=== PATIENT | female | born 1930 | race Caucasian/White ===

== ENCOUNTER 2016-08-03 08:30 | Inpatient (IN) | payer OTHER, BC ==
[2016-08-03] MEDS ORDERED: PANTOPRAZOLE SODIUM 40 MG in SODIUM CHLORIDE 100 ML IVPB ONE (09:22)
[2016-08-03] MEDS ORDERED: morphine CARPU-JECT 4 MG/1 ML DISP.SYRIN IVPUSH ONE ×2 (09:22→12:52)
[2016-08-03] MEDS ORDERED: ONDANSETRON 4 MG/2 ML VIAL IVPB ONE (09:22)
[2016-08-03] MEDS ORDERED: morphine CARPU-JECT 4 MG/1 ML DISP.SYRIN ONE ×2 (09:38→13:38)
[2016-08-03] MEDS ORDERED: ONDANSETRON 4 MG/2 ML VIAL ONE (09:39)
[2016-08-03] MEDS ORDERED: PANTOPRAZOLE SODIUM 40 MG VIAL ONE (09:39)
--- NOTE | 2016-08-03 09:39 | PDOC ---
History of Present Illness - General Chief Complaint: Pain Stated Complaint: ABD PAIN Time Seen by Provider: 08/03/16 08:56 History Source: Patient, Family Exam Limitations: No Limitations - History of Present Illness Travel History: No Initial Comments: 08/03/16 09:32 HPI: This 85 year old female presents with her daughter with c/o epigastric pain and vomiting since last evening. She was well until this began last evening. She states she had chills and sweating but no measurement of temp was taken. She recently was seen by her PMD (4 days ago) for cold symptoms and was started on Bactrium for treatment. She has been taking it for 4 days now. She has never had a problem taking this antibiotic before she states. Last meal is a freezer type meal that is vegetarian Chief Compliant:epigastri pain and vomiting. Pain location:epigastric pain Duration:since yesterday at 4 pm Modifying factors:takes morphine 5 mg for pain for back issues but did not resolve her abd pain Quality:10/10 Radiating:through out her abd Severity:sharp, cramp like, burning Time: constant PMH: CHF, duodenal ulcers, leukemia, hypothyroidism, RA, Sjogren Syndrome, OA, vertebral compression fractures, RLE venous insufficiency, cholelithasis, splenomegaly, daily steriod use and on protonix daily FH: Pt has not recently traveled outside the country in the last 30 days. Pt has not been in contact with people who have traveled out of the country, in contact with people who have been ill with fever, n, v, d. SH: smoking use: former illicit drug use: NONE alcohol use: NONE PSH: back surgery X 11, Right THR, Home med use noted on SEP Allergies: PCN Immunizations: PCP: Dr. Gupta 08/03/16 09:40 08/03/16 09:41 Past History - Past Medical History Allergies/Adverse Reactions: Allergies Allergy/AdvReac Type Severity Reaction Status Date / Time Penicillins Allergy Severe Swelling Verified 08/03/16 08:38 Home Medications: Ambulatory Orders Aspirin [Aspirin EC] 81 mg PO DAILY 03/30/15 Calcium Carb/Magnesium Ox,Carb [Gio-Mag Tablet Chewable] 1 tab PO DAILY Cholecalciferol (Vitamin D3) [Vitamin D3 -] 5,000 unit PO DAILY 03/30/15 Furosemide [Lasix -] 20 mg PO PRN PRN 03/30/15 Potassium Chloride [Klor-Con 10] 10 meq PO DAILY 03/30/15 Sulfamethoxazole/Trimethoprim [Bactrim DS -] 1 each PO DAILY tablet 04/02/15 Pantoprazole Sodium [Protonix] 40 mg PO DAILY 05/03/15 Levothyroxine [Synthroid -] 88 mcg PO DAILY@0700 11/20/15 Prednisone [Deltasone -] 9 mg PO PRN PRN 11/20/15 Morphine *Sr* [Ms Contin -] 5 mg PO Q8H 08/03/16 Anemia: No Asthma: No Cancer: No Cardiac Disorders: No CVA: No COPD: No CHF: Yes Dementia: No Diabetes: No GI Disorders: Yes (ULCER) Disorders: Yes (FREQUENCY) HTN: No Hypercholesterolemia: No Liver Disease: Yes (hepatitis ? TYPE) Seizures: No Thyroid Disease: Yes (hypo) - Surgical History Abdominal Surgery: No Appendectomy: No Cardiac Surgery: No Cholecystectomy: No Lung Surgery: No Neurologic Surgery: No Orthopedic Surgery: Yes (R THR, ORIF femur fx RIGHT) - Psycho/Social/Smoking Cessation Hx Anxiety: No Suicidal Ideation: No Smoking Status: No Smoking History: Former smoker Have you smoked in the past 12 months: No Number of Cigarettes Smoked Daily: 0 If you are a former smoker, when did you quit?: 20 years ago Information on smoking cessation initiated: No Hx Alcohol Use: No Drug/Substance Use Hx: No Substance Use Type: None Hx Substance Use Treatment: No Review of Systems - Review of Systems Able to Perform ROS?: Yes Comments:: 08/03/16 09:42 General statement: Abdominal pain Hematology: neg history of bleeding/blood thinners Skin: Neg for lesions, rash, bruising. HEENT: Neg symptoms Respiratory: Neg SOB or difficulty in breathing Cardiac: Neg chest pain GI: Epigastric positive pain, with n/v : Neg problems on voiding MS: Neg for joint pain/stiffness, no edema Neuro: Neg for LOC, weakness, Endocrine: Neg for excess thirst/hunger, cold/heat intolerance, excess sweating Allergies: Positive for allergies 08/03/16 11:28 *Physical Exam - Vital Signs Last Vital Signs Temp Pulse Resp BP Pulse Ox 67 18 152/83 95 08/03/16 08:36 08/03/16 08:36 08/03/16 08:36 08/03/16 08:36 - Physical Exam Comments: 08/03/16 11:28 General Appearance: This 85-year-old female V/S: hemodynamically stable, afebrile Skin: WNL of pt's skin color, no signs of pallor, mottling, cyanosis Head:symmetrical Eyes: EOM's intact, PERRLA Ears: denies pain Nose: patent Throat: lips, teeth, gums, tongue, buccal mucos pink and moist Lungs: Chest symmetry equal. Cap refill <3 seconds. Lung sounds clear but diminished Cardiac: PMI at R 4MCL space, pos S1 and S2, regular rate. Abdomen: Soft, round, positive tender at the epigastric. Positive bowel sounds. Last bowel movement yesterday : Not observed Muscularskeletal: Gait steady, ambulated in to ER, no edema +PMS Neuro: AAOx3, cognitively intact, speech clear and appropriate. ED Treatment Course - LABORATORY CBC & Chemistry Diagram: 08/03/16 09:40 08/03/16 09:40 - RADIOLOGY Radiology Studies Ordered: Category Date Time Status CHEST X-RAY PORTABLE* [RAD] Stat Radiology 08/03/16 09:20 Ordered Medical Decision Making - Medical Decision Making 08/03/16 11:26 Patient initially came in with complaints of abdominal pain that was a 10 out of 10 to the epigastric region since 4 PM yesterday. Patient has past medical history of epigastric pain, ulcers, and gastritis. Last admission was in March for similar complaints. No findings of GI B or gallstones. Patient appears uncomfortable with a 10 out of 10 pain. A/P abd pain with nausea and vomiting 1. Labs 2. IVF with added zofran and protonix and pain medications 3. abd/pelvic with contrast IV only CT. Pt refused to take po contrast 4. ekg 5. CXR 6. Probable admission for abd assessments Laboratory Tests 08/03/16 08/03/16 09:40 09:40 WBC 8.9 Hgb 10.1 L Hct 33.4 Plt Count 139 D Sodium 138 Potassium 4.0 Chloride 102 Carbon Dioxide 25 Anion Gap 11 BUN 11 D Creatinine 0.6 Random Glucose 145 H D Calcium 7.7 L Total Bilirubin 0.5 Lipase 87 08/03/16 11:29 While patient was at CAT scan she felt a pain in her mid back and heard a crack. She does have a history of compression fractures and osteoarthritis. Thoracic, lumbar, sacral x-rays have been ordered. Pain medication has been ordered. 08/03/16 12:49 Patient's CAT scan reveals a markedly splenomegaly marked gastric dilatation with air and fluid distending the stomach with findings of a distal small bowel obstruction suspected zone of transition in the middle lower pelvis between dilated and nondilated small bowel loops. No significant ascites or mesenteric infiltrate 08/03/16 13:[address] Coles for admission med surg for pt. 08/03/16 13:41 Noted old compression fractures with no acute findings. *DC/Admit/Observation/Transfer Diagnosis at time of Disposition: Small bowel obstruction Abdominal pain Qualifiers: Abdominal location: epigastric Qualified Code(s): R10.13 - Epigastric pain - Discharge Dispostion Condition at time of disposition: Guarded Admit: Yes
[2016-08-03] MEDS: SODIUM CHLORIDE 1,000 ML IV SCH (09:47)
[2016-08-03 09:59] LABS: MCHC 30.4 g/dl (32.0-36.0); MEAN CELL VOLUME 57.4 fl (80-96); MEAN PLT VOLUME 8.2 fl (7.5-11.1); PLATELET COUNT 139 K/MM3 (134-434); RDW 18.7 % (11.6-15.6); WHITE BLOOD COUNT 8.9 K/mm3 (4.0-10.0)
[2016-08-03 10:12] LABS: MCH 17.4 pg (25.7-33.7)
[2016-08-03 10:14] LABS: ALBUMIN 3.3 g/dl (3.4-5.0); ANION GAP 11 (8-16); BILIRUBIN,TOTAL 0.5 mg/dL (0.2-1.0); CALCIUM 7.7 mg/dL (8.5-10.1); CO2 25 mmol/L (21-32); CREATININE 0.6 mg/dL (0.55-1.02); GLUCOSE,RANDOM 145 mg/dL (74-106); SGOT/AST 16 U/L (15-37); SGPT/ALT 10 U/L (12-78); TOT PROT 7.7 g/dl (6.4-8.2)
[2016-08-03 10:16] LABS: ALK PHOS 55 U/L (45-117); TROPONIN I < 0.02 ng/ml (0.00-0.05)
[2016-08-03 11:22] LABS: ANISOCYTOSIS 2+; FRAGMENTED CELL 1+; HYPOCHROMIA 2+; MICROCYTOSIS 3+; OVALOCYTES 2+; POIKILOCYTOSIS 2+; TEAR DROP CELLS 1+
--- NOTE | 2016-08-03 11:32 | EKG ---
Test Reason : Blood Pressure : / mmHG Vent. Rate : 055 BPM Atrial Rate : 055 BPM P-R Int : 216 ms QRS Dur : 112 ms QT Int : 470 ms P-R-T Axes : 046 -20 -03 degrees QTc Int : 449 ms SINUS BRADYCARDIA WITH MARKED SINUS ARRHYTHMIA WITH 1ST DEGREE A-V BLOCK WHEN COMPARED WITH ECG OF 20-NOV-2015 20:08, NO SIGNIFICANT CHANGE WAS FOUND Confirmed by CHANDLER URIAS MD ([id number]) on 08/03/2016 11:32:20 AM Referred By: Confirmed By:CHANDLER URIAS MD
[2016-08-03 13:15] LABS: URINE APPEARANCE CLEAR; URINE BILIRUBIN NEGATIVE (NEGATIVE); URINE BLOOD NEGATIVE (NEGATIVE); URINE COLOR LTYELLOW; URINE GLUCOSE (UA) NEGATIVE (NEGATIVE); URINE KETONE NEGATIVE (NEGATIVE); URINE LEUK ESTERASE NEGATIVE (NEGATIVE); URINE NITRITE NEGATIVE (NEGATIVE); URINE PROTEIN NEGATIVE (NEGATIVE); URINE UROBILINOGEN NEGATIVE E.U./dl (0.2-1.0)
[2016-08-03] MEDS ORDERED: ONDANSETRON 4 MG/2 ML VIAL IVPB PRN (15:41)
--- NOTE | 2016-08-03 15:44 | HP ---
Admitting History and Physical - Primary Care Physician PCP: Trent Gupta - Admission Chief Complaint: I'm having pain History of Present Illness: Ms Olson is an 85 year old female who comes in with abdominal pain. She says it began last night. It is sharp and crampy in nature. It is constant. She feels it throughout her abdomen. It started off light and has steadily progressed. She has nausea and dry heaves with it. Her last bowel movement was this morning. She is still having abdominal pain. She denies fevers, chills, lightheadedness, dizziness, chest pain, shortness of breath, difficulty or pain on urination, or swelling. History Source: Patient Limitations to Obtaining History: No Limitations - Past Medical History SERVICE CASHIER: Yes: TIA (Possible 03/2013). 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), Thrombocytopenia, Other (Splenomegaly) Musculoskeletal: Yes: Osteoarthritis, Other (Osteoporosis Compression fractures and kyphoplasty) Rheumatology: Yes: Other (Possible inflamatory arthritis RA or Sjogren's syndrome) Endocrine: Yes: Hypothyroidism - Past Surgical History Past Surgical History: Yes: Joint Replacement (Right Hip Kyphoplasty) - Smoking History Smoking history: Former smoker Have you smoked in the past 12 months: No Aproximately how many cigarettes per day: 0 If you are a former smoker, when did you quit?: 20 years ago - Alcohol/Substance Use Hx Alcohol Use: No History of Substance Use: reports: None - Social History ADL: Independent Occupation: Retired educator History of Recent Travel: No Home Medications - Allergies Allergies/Adverse Reactions: Allergies Allergy/AdvReac Type Severity Reaction Status Date / Time Penicillins Allergy Severe Swelling Verified 08/03/16 08:38 - Home Medications Home Medications: Ambulatory Orders Aspirin [Aspirin EC] 81 mg PO DAILY 03/30/15 Calcium Carb/Magnesium Ox,Carb [Gio-Mag Tablet Chewable] 1 tab PO DAILY Cholecalciferol (Vitamin D3) [Vitamin D3 -] 5,000 unit PO DAILY 03/30/15 Furosemide [Lasix -] 20 mg PO PRN PRN 03/30/15 Potassium Chloride [Klor-Con 10] 10 meq PO DAILY 03/30/15 Sulfamethoxazole/Trimethoprim [Bactrim DS -] 1 each PO DAILY tablet 04/02/15 Pantoprazole Sodium [Protonix] 40 mg PO DAILY 05/03/15 Levothyroxine [Synthroid -] 88 mcg PO DAILY@0700 11/20/15 Prednisone [Deltasone -] 9 mg PO PRN PRN 11/20/15 Morphine *Sr* [Ms Contin -] 5 mg PO Q8H 08/03/16 Family Disease History - Family Disease History Family Disease History: Other: Brother (rheumatoid arthritis), Sister ( osteoarthritis) Review of Systems Findings/Remarks: Full review of systems obtained, as per HPI and otherwise negative Physical Examination Vital Signs: Vital Signs Temperature 97.8 F 08/03/16 12:00 Pulse Rate 60 08/03/16 12:00 Respiratory Rate 20 08/03/16 12:00 Blood Pressure 114/68 08/03/16 12:00 O2 Sat by Pulse Oximetry (%) 97 08/03/16 12:00 Constitutional: Yes: Mild Distress Eyes: Yes: Conjunctiva Clear, EOM Intact HENT: Yes: Atraumatic, Normocephalic Cardiovascular: Yes: Regular Rate and Rhythm, Murmur. No: Gallop, Rub Respiratory: Yes: Regular, CTA Bilaterally. No: Rales, Rhonchi, Wheezes Gastrointestinal: Yes: Distention, Hypoactive Bowel Sounds, Tenderness. No: Tenderness, Rebound Extremities: Yes: WNL Edema: No Labs: Laboratory Results - last 24 hr 08/03/16 08/03/16 08/03/16 09:40 09:40 09:52 WBC 8.9 RBC 5.81 H D Hgb 10.1 L Hct 33.4 MCV 57.4 L MCHC 30.4 L RDW 18.7 H Plt Count 139 D MPV 8.2 D Neutrophils % 59.0 Lymphocytes % 23.0 D Monocytes % 17.0 H Basophils % 1.0 Differential Comment Manual diff done Hypochromic-Microcytic 2+ Poikilocytosis 2+ Anisocytosis 2+ Microcytosis 3+ Tear Drop Cells 1+ Ovalocytes 2+ Fragmented RBCs 1+ Morphology Comment Slide scanned Sodium 138 Potassium 4.0 Chloride 102 Carbon Dioxide 25 Anion Gap 11 BUN 11 D Creatinine 0.6 Creat Clearance w eGFR > 60 Random Glucose 145 H D Calcium 7.7 L Total Bilirubin 0.5 AST 16 D ALT 10 L D Alkaline Phosphatase 55 Creatine Kinase 24 L Troponin I < 0.02 Total Protein 7.7 Albumin 3.3 L Lipase 87 Urine Color Ltyellow Urine Appearance Clear Urine pH 8.0 D Ur Specific [place] 1.041 H Urine Protein Negative Urine Glucose (UA) Negative Urine Ketones Negative Urine Blood Negative Urine Nitrite Negative Urine Bilirubin Negative Urine Urobilinogen Negative Ur Leukocyte Esterase Negative Imaging - Results Chest X-ray: Report Reviewed, Image Reviewed Cat Scan: Report Reviewed Problem List - Problems (1) Small bowel obstruction Assessment/Plan: -patient with abdominal pain and dry heaves -CT scan shows SBO -admit to med/surg -npo -IV morphine for pain -GI and general surgery consult -NGT to [facility]WS Code(s): K56.69 - OTHER INTESTINAL OBSTRUCTION (2) Hypothyroid Assessment/Plan: -will hold synthroid currently -if remains npo for extended period of time, start IV synthroid Code(s): E03.9 - HYPOTHYROIDISM, UNSPECIFIED (3) Inflammatory arthritis Assessment/Plan: -currently on IV morphine -PT consult -restart home medications when taking po Code(s): M19.90 - UNSPECIFIED OSTEOARTHRITIS, UNSPECIFIED SITE (4) Systolic murmur Assessment/Plan: -present and chronic -monitor Code(s): I38 - ENDOCARDITIS, VALVE UNSPECIFIED (5) Myelodysplastic disease Code(s): C94.6 - MYELODYSPLASTIC DISEASE, NOT CLASSIFIED (6) Sjogrens syndrome Code(s): M35.00 - SICCA SYNDROME, UNSPECIFIED
[2016-08-03 20:08] VITALS: BMI 22.6
[2016-08-03] MEDS ORDERED: HEPARIN NA (PORCINE) 5,000 UNITS/ML 1ML VIAL ONE (21:16)
[2016-08-03] MEDS: HEPARIN NA (PORCINE) 5,000 UNITS/ML 1ML VIAL SQ SCH (21:17)
[2016-08-04] MEDS: HEPARIN NA (PORCINE) 5,000 UNITS/ML 1ML VIAL SQ SCH ×3 (06:25→22:10)
[2016-08-04 07:50] LABS: MCHC 30.6 g/dl (32.0-36.0); MEAN CELL VOLUME 57.1 fl (80-96); MEAN PLT VOLUME 8.4 fl (7.5-11.1); PLATELET COUNT 133 K/MM3 (134-434); RDW 18.8 % (11.6-15.6)
[2016-08-04 07:55] LABS: MCH 17.5 pg (25.7-33.7)
--- NOTE | 2016-08-04 08:15 | PN ---
Progress Note (short form) - Note Progress Note: Patient seen and examined Chart reviewed. 85 year old with complicated PMHx, presented with abdominal pain and CT findings c/w distal SBO. Attempts at NGT passage were unsuccessful. Currently supine in bed awake alert and responsive and complaining mostly of back pain c/w h/o multiple compression fractures. Denies new chest discomfort, palpitations jenkins or angina. Labs and radiologic studies reviewed. Await surgical opinion. Selected Entries 08/03/16 08/04/16 23:45 06:00 Temperature 98 F Pulse Rate 70 Respiratory 18 Rate Blood Pressure 113/73 Weight 104 lb Weight Built in Measurement Bedscale Method Laboratory Tests 08/03/16 08/04/16 09:40 06:15 WBC 9.0 Hgb 9.4 L Hct 30.9 L Plt Count 133 L Sodium 138 Potassium 4.0 Chloride 102 Carbon Dioxide 25 BUN 11 D Creatinine 0.6 Random Glucose 145 H D Calcium 7.7 L Total Bilirubin 0.5 AST 16 D ALT 10 L D Alkaline Phosphatase 55 Creatine Kinase 24 L Troponin I < 0.02 Total Protein 7.7 Albumin 3.3 L Lipase 87 Chest Clear with decreased breath sounds at bases No wheezing Cor RRR 2/6 systolic murmur Abdomen Soft non-tender No BS audible Spleen palpable LUQ Ext No new edema Neuro No new focal deficit Assessment and Plan SBO Refused NGT Await surgical opinion NGT passed this AM by me, but patient was uncomfortable No initial drainage noted. 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 Has seen Dr Gutierrez Stable at present Inflammatory arthritis Possible RA and Sjogren's syndrome Chronic hypergammaglobulinemia Hypothyroid Follow closely Cholelithiasis Noted on Ultrasound ordered by Dr Pierce 03/2016 AAA 3.4 cm with bilateral iliac artery aneurysms Osteoporosis with multiple spinal compression fractures of the thoracic and lumbar spine post kyphoplasties Has new back pain Will ask Dr Baxter to see her again 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 on daily antibiotic suppression post drainage of right thigh mass On chronic steroids Replace low dose steroids Observe for signs/symptoms of Addisonian crisis H/O acid peptic disease/duidenal ulcer Full extensive Problem List as per office notes and old charts
[2016-08-04] MEDS: morphine CARPU-JECT 2 MG/1 ML DISP.SYRIN IVPUSH PRN ×3 (08:37→18:42)
[2016-08-04 08:45] LABS: ALBUMIN 2.8 g/dl (3.4-5.0); ALK PHOS 53 U/L (45-117); ANION GAP 12 (8-16); BILIRUBIN,TOTAL 0.4 mg/dL (0.2-1.0); CALCIUM 7.4 mg/dL (8.5-10.1); CO2 22 mmol/L (21-32); CREATININE 0.5 mg/dL (0.55-1.02); GLUCOSE,RANDOM 88 mg/dL (74-106); MAGNESIUM 2.3 mg/dL (1.8-2.4); PHOSPHOROUS 2.4 mg/dL (2.5-4.9); SGOT/AST 13 U/L (15-37); SGPT/ALT 7 U/L (12-78); TOT PROT 6.8 g/dl (6.4-8.2)
[2016-08-04] MEDS: SODIUM CHLORIDE 1,000 ML IV SCH ×2 (10:00→22:10)
--- NOTE | 2016-08-04 10:03 | CONSULT ---
Consultation: REQUESTING PROVIDER: TRACEY VILLARREAL CONSULT REQUEST: I have been asked to surgically evaluate this patient for evaluation and management of abdominal pain. HISTORY OF PRESENT ILLNESS: This 85 y/o White female was admitted w/ abdominal pain w/ nausea and w/o vomiting; she states today she is passing flatus; attempts were made for NGT decompression based on the CT scan findings which were unsuccessful. She is c/o back pain; she takes narcotics for her back pain. She has had no abdominal surgery. Colonoscopy ?. She states she has had this 2 or 3 times in the past ? and it resolved w/ conservative tx. PMHx is reviewed PHYSICAL EXAMINATION Vital Signs Temperature 98 F 08/04/16 06:00 Pulse Rate 70 08/04/16 06:00 Respiratory Rate 18 08/04/16 06:00 Blood Pressure 113/73 08/04/16 06:00 O2 Sat by Pulse Oximetry (%) 97 08/03/16 12:00 GENERAL: Awake, alert, and fully oriented, in no acute distress. HEAD: Normal with no signs of trauma. ABDOMEN: Soft, nontender, not distended but tympanitic, normoactive bowel sounds , no guarding, no rebound, no masses. UPPER EXTREMITIES: 2+ pulses, warm, well-perfused. No cyanosis. Cap refill <2 seconds. No peripheral edema. LOWER EXTREMITIES: 2+ pulses, warm, well-perfused. No calf tenderness. No peripheral edema. NEUROLOGICAL: Normal speech, gait not observed. PSYCH: Cooperative. Good eye contact. Appropriate mood and affect. SKIN: Warm, dry, normal turgor, no rashes or lesions noted. LABS: Laboratory Results - last 24 hr 08/04/16 08/04/16 06:15 06:15 WBC 9.0 RBC 5.40 H Hgb 9.4 L Hct 30.9 L MCV 57.1 L MCHC 30.6 L RDW 18.8 H Plt Count 133 L MPV 8.4 Neutrophils % Y Lymphocytes % Y Sodium 140 Potassium 3.9 Chloride 106 Carbon Dioxide 22 Anion Gap 12 BUN 7 D Creatinine 0.5 L Creat Clearance w eGFR > 60 Random Glucose 88 D Calcium 7.4 L Phosphorus 2.4 L D Magnesium 2.3 Total Bilirubin 0.4 AST 13 L ALT 7 L D Alkaline Phosphatase 53 Total Protein 6.[address] scan a/p reviewed; previous studies reviewed IMP: ? SBO ? PLAN: Suggest NPO/IVF/suggest obstructive series today (flat and upright abdominal x-rays); will f/u; no evidence of an acute surgical abdomen at this time. Praveen Ross MD FACS Visit type - Case Type Case Type: ED Admission - Emergency Emergency Visit: Yes ED Registration Date: 08/03/16 Care time: The patient presented to the Emergency Department on the above date and was hospitalized for further evaluation of their emergent condition. - New patient This patient is new to me today: Yes Date on this admission: 08/04/16 - Critical Care Critical Care patient: No
[2016-08-04] MEDS: PANTOPRAZOLE SODIUM 100 ML IVPB SCH (10:09)
[2016-08-04 10:53] LABS: PLATELET COMMENT2 NO CLOTTING DETECTED; PLATELET ESTIMATE SLT DECREASED (NORMAL); SMUDGE CELLS FEW
[2016-08-04 10:54] LABS: ANISOCYTOSIS 3+; FRAGMENTED CELL 1+; HYPOCHROMIA 2+; MICROCYTOSIS 3+; OVALOCYTES 1+; POIKILOCYTOSIS 2+; POLYCHROMASIA 2+; SPHEROCYTE 1+
--- NOTE | 2016-08-04 11:46 | PN ---
Progress Note, Physician Chief Complaint: mid back pain History of Present Illness: 85 year old female who comes in with abdominal pain. and mid back pain. Pain score 8/10 without medications She reports difficulty working due to pain. She states she has no weakness or numbness but the pain worsens with coughing. - Current Medication List Current Medications: Active Medications Heparin Sodium (Porcine) (Heparin -) 5,000 unit SQ TID [facility] Last Admin: 08/04/16 06:25 Dose: 5,000 unit Sodium Chloride (Normal Saline -) 1,000 mls @ 75 mls/hr IV ASDIR [facility] Last Admin: 08/04/16 10:00 Dose: Not Given Pantoprazole Sodium (Protonix 40mg Ivpb (Pre-Docked)) 100 mls @ 200 mls/hr IVPB DAILY [facility] Last Admin: 08/04/16 10:09 Dose: 200 mls/hr Morphine Sulfate (Morphine Injection -) 1 mg IVPUSH Q4H PRN PRN Reason: PAIN Last Admin: 08/04/16 08:37 Dose: 1 mg Ondansetron HCl (Zofran Injection) 4 mg IVPB Q6H PRN PRN Reason: NAUSEA - Objective Vital Signs: Vital Signs Temperature 98 F 08/04/16 06:00 Pulse Rate 70 08/04/16 06:00 Respiratory Rate 18 08/04/16 06:00 Blood Pressure 113/73 08/04/16 06:00 O2 Sat by Pulse Oximetry (%) 97 08/03/16 12:00 Constitutional: Yes: Anxious Musculoskeletal: Yes: Back Pain Labs: CBC, BMP 08/04/16 06:15 08/04/16 06:15 Assessment/Plan Mid back pain Abdominal pain secondary to obstruction 1. I would recommend a nuclear bone scan to rule out any acute compression fracture if her mid back pain continues to be severe. 2. Continue morphine PRN pain for now 3. GI work up for obstruction
--- NOTE | 2016-08-04 11:47 | CON.GI ---
Consult Consult Specialty:: GASTROENTEROLOGY (FOR TOM) Reason for Consultation:: SBO - History of Present Illness Chief Complaint: ABDOMINAL PAIN History of Present Illness: 85 YEAR OLD FEMALE WITH HISTORY OF LUMBAR COMPRESSION FRACTURES ( STATES TAKES NARCOTICS ) ADMITTED WITH NAUSEA BUT NO VOMITING AND WAS ADMITTED WITH CT SCAN SUGGESTING SBO. PATIENT MAIN C/O TODAY IS BACK PAIN. NO N/V BUT NO BM. SHE IS PASSING SOME FLATUS. SHE ALSO HAS CHRONIC SPLENOMEGALY AND MICROCYTIC ANEMIA. UPPER GI SERIES DONE BY DR SANTOS WAS NEGATIVE AND ULTRASOUND REVEALED SPLENOMEGALY AND GALLSTONES. SHE HAS NEVER HAD A COLONOSCOPY AND IS REFUSING THIS CURRENTLY - History Source History Provided By: Patient Limitations to Obtaining History: No Limitations - Past Medical History PERSONAL BANKER: Yes: TIA (Possible 03/2013). 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 No: AFIB, CHF Gastrointestinal: Yes: Peptic Ulcer Disease (duodenitis/gastritis/duodenal ulcer ), Other (Schatzki ring) Hepatobiliary: Yes: Other (GALLSTONES) ...: No Musculoskeletal: Yes: Osteoarthritis, Other (Osteoporosis Compression fractures and kyphoplasty) Rheumatology: Yes: Other (Possible inflamatory arthritis RA or Sjogren's syndrome) Endocrine: Yes: Hypothyroidism - Past Surgical History Past Surgical History: Yes: Joint Replacement (Right Hip Kyphoplasty) - Alcohol/Substance Use Hx Alcohol Use: No History of Substance Use: reports: None - Smoking History Smoking history: Former smoker Have you smoked in the past 12 months: No Aproximately how many cigarettes per day: 0 If you are a former smoker, when did you quit?: 20 years ago - Social History ADL: Independent Occupation: Retired educator History of Recent Travel: No Home Medications - Allergies Allergies/Adverse Reactions: Allergies Allergy/AdvReac Type Severity Reaction Status Date / Time Penicillins Allergy Severe Swelling Verified 08/03/16 08:38 - Home Medications Home Medications: Ambulatory Orders Aspirin [Aspirin EC] 81 mg PO DAILY 03/30/15 Calcium Carb/Magnesium Ox,Carb [Gio-Mag Tablet Chewable] 1 tab PO DAILY Cholecalciferol (Vitamin D3) [Vitamin D3 -] 5,000 unit PO DAILY 03/30/15 Furosemide [Lasix -] 20 mg PO PRN PRN 03/30/15 Potassium Chloride [Klor-Con 10] 10 meq PO DAILY 03/30/15 Sulfamethoxazole/Trimethoprim [Bactrim DS -] 1 each PO DAILY tablet 04/02/15 Pantoprazole Sodium [Protonix] 40 mg PO DAILY 05/03/15 Levothyroxine [Synthroid -] 88 mcg PO DAILY@0700 11/20/15 Prednisone [Deltasone -] 9 mg PO PRN PRN 11/20/15 Morphine *Sr* [Ms Contin -] 5 mg PO Q8H 08/03/16 Family Disease History - Family Disease History Family Disease History: Other: Brother (rheumatoid arthritis), Sister ( osteoarthritis) Review of Systems - Review of Systems Constitutional: reports: Loss of Appetite Eyes: reports: No Symptoms HENT: reports: No Symptoms Neck: reports: No Symptoms Cardiovascular: reports: No Symptoms Respiratory: reports: Cough, SOB Gastrointestinal: reports: Abdominal Pain, Nausea, Other (NO BM) Genitourinary: reports: No Symptoms Musculoskeletal: reports: Back Pain Integumentary: reports: No Symptoms Physical Exam-GI Vital Signs: Vital Signs Temperature 98 F 08/04/16 06:00 Pulse Rate 70 08/04/16 06:00 Respiratory Rate 18 08/04/16 06:00 Blood Pressure 113/73 08/04/16 06:00 O2 Sat by Pulse Oximetry (%) 97 08/03/16 12:00 Constitutional: Yes: Mild Distress, Other (DUE TO BACK PAIN) Eyes: Yes: Conjunctiva Clear HENT: Yes: Normocephalic Cardiovascular: Yes: Regular Rate and Rhythm, Murmur Respiratory: Yes: Regular ...Auscultate: Yes: Hypoactive Bowel Sounds, Other (MILD TYPANY) ...Palpate: Yes: Splenomegaly Extremities: Yes: WNL Labs: CBC, BMP 08/04/16 06:15 08/04/16 06:15 Laboratory Tests 08/03/16 08/04/16 08/04/16 09:40 06:15 06:15 WBC 9.0 RBC 5.40 H Hgb 9.4 L Hct 30.9 L MCV 57.1 L MCHC 30.6 L RDW 18.8 H Plt Count 133 L Monocytes % 23.0 H Sodium 140 Potassium 3.9 Chloride 106 Carbon Dioxide 22 Anion Gap 12 BUN 7 D Creatinine 0.5 L Creat Clearance w eGFR > 60 Random Glucose 88 D Calcium 7.4 L Phosphorus 2.4 L D Magnesium 2.3 Total Bilirubin 0.4 AST 13 L ALT 7 L D Alkaline Phosphatase 53 Total Protein 6.8 Albumin 2.8 L Lipase 87 Imaging - Results X-ray: Pending Cat Scan: Image Reviewed Problem List - Problems (1) Small bowel obstruction Assessment/Plan: PROBABLE PARTIAL SBO, NGT PLACEMENT FAILED: SHE IS NOT VOMITING SO OK TO LEAVE OUT. OOB, AMBULATE, TURN IN BED, AWAIT FUA DO NOT ADVANCE DIET TODAY Code(s): K56.69 - OTHER INTESTINAL OBSTRUCTION (2) Abdominal pain Assessment/Plan: ABOVE Code(s): R10.9 - UNSPECIFIED ABDOMINAL PAIN Qualifiers: Abdominal location: epigastric Qualified Code(s): R10.13 - Epigastric pain (3) Intractable low back pain Code(s): M54.5 - LOW BACK PAIN (4) Hypothyroid Assessment/Plan: PER PMD Code(s): E03.9 - HYPOTHYROIDISM, UNSPECIFIED (5) Microcytic anemia Assessment/Plan: PREVIOUS WORK UP? Code(s): D50.9 - IRON DEFICIENCY ANEMIA, UNSPECIFIED
[2016-08-05] MEDS: morphine CARPU-JECT 2 MG/1 ML DISP.SYRIN IVPUSH PRN ×4 (02:24→17:30)
[2016-08-05] MEDS: HEPARIN NA (PORCINE) 5,000 UNITS/ML 1ML VIAL SQ SCH ×3 (06:26→22:20)
[2016-08-05] MEDS: SODIUM CHLORIDE 1,000 ML IV SCH ×3 (06:27→20:05)
[2016-08-05 07:54] LABS: MCHC 30.1 g/dl (32.0-36.0); MEAN CELL VOLUME 57.3 fl (80-96); MEAN PLT VOLUME 8.2 fl (7.5-11.1); PLATELET COUNT 129 K/MM3 (134-434); RDW 19.1 % (11.6-15.6)
[2016-08-05 07:57] LABS: MCH 17.2 pg (25.7-33.7)
--- NOTE | 2016-08-05 08:08 | PN ---
Progress Note (short form) - Note Progress Note: Pt states that she had a bowel movement yesterday and passed flatus. No nausea or emesis and hasn't had anything to eat or drink. She complaints of back pain/ right rib pain with deep breaths. Vital Signs Period Temp Pulse Resp BP Sys/Ramirez Pulse Ox Last 24 Hr 97.7 F-98.7 F 76-85 18-18 122-144/61-79 96-96 PE: GEN: A&0x3, NAD CV: RRR Lungs: CTA b/l ABD: soft, non-distended, non-tender CBC, BMP 08/05/16 07:15 Problem List - Problems (1) Small bowel obstruction Assessment/Plan: Resolving SBO, abd non-tender Will begin clears and may adv diet as tolerated, regular diet for dinner/lunch if she continue to not have abd with eating. Recommend stool softners after she is tolerating a regular diet, she takes MS contin for chronic back pain D/w Dr. Ross Code(s): K56.69 - OTHER INTESTINAL OBSTRUCTION
[2016-08-05 08:35] LABS: ALBUMIN 2.6 g/dl (3.4-5.0); ANION GAP 12 (8-16); CO2 22 mmol/L (21-32); GLUCOSE,RANDOM 65 mg/dL (74-106); MAGNESIUM 2.3 mg/dL (1.8-2.4)
[2016-08-05 08:39] LABS: ALK PHOS 47 U/L (45-117); BILIRUBIN,TOTAL 0.5 mg/dL (0.2-1.0); CREATININE 0.5 mg/dL (0.55-1.02); SGOT/AST 11 U/L (15-37); SGPT/ALT < 6 U/L (12-78); TOT PROT 6.3 g/dl (6.4-8.2)
--- NOTE | 2016-08-05 09:21 | PN ---
Progress Note (short form) - Note Progress Note: Patient seen and examined Chart reviewed. 85 year old with complicated PMHx, presented with abdominal pain and CT findings c/w distal SBO. Attempts at NGT passage were unsuccessful. Currently supine in bed awake alert and responsive and complaining mostly of back pain c/w h/o multiple compression fractures. Pain exacerbated by coughing. Denies new chest discomfort ither than right sided rib area pain, palpitations jenkins or angina. Labs and radiologic studies reviewed. Surgical and GI notes appreciated. will advance diet Dr Baxter's note appreciated. Labs reviewed Selected Entries 08/04/16 08/05/16 21:00 05:56 Temperature 97.7 F Pulse Rate 79 Respiratory 18 Rate Blood Pressure 144/79 O2 Sat by Pulse 96 Oximetry (%) Oxygen Delivery Room Air Method Weight 104 lb 1.6 oz Weight Built in Measurement Bedscale Method Laboratory Tests 08/05/16 08/05/16 07:15 07:15 WBC 9.0 Hgb 9.3 L Hct 30.7 L Plt Count 129 L Neutrophils % 60.0 Lymphocytes % 13.0 D Monocytes % 26.0 H Sodium 143 Potassium 3.4 L Chloride 109 H Carbon Dioxide 22 BUN 9 D Creatinine 0.5 L Random Glucose 65 L D Calcium 7.0 L Magnesium 2.3 Total Bilirubin 0.5 D AST 11 L ALT < 6 L Alkaline Phosphatase 47 Total Protein 6.3 L Albumin 2.6 L Chest Scattered rhonchi and fine end-expiratory wheezing with decreased breath sounds at bases Cor RRR 2/6 systolic murmur Abdomen Soft non-tender Bowel sounds audible this AM Spleen palpable LUQ Ext No new edema Neuro No new focal deficit Assessment and Plan SBO Surgical and GI opinion noted Passing flatus Bowel sounds audible this AM Begin clear liquids 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 on daily antibiotic suppression post drainage of right thigh mass Renew daily oral antibiotic On chronic steroids Replace low dose steroids Observe for signs/symptoms of Addisonian crisis Will add iv solumedrol for pulmonary congestion and cough Will taper quickly H/O acid peptic disease/duidenal ulcer Continue PPI Cough/congestion Cough is making her back pain worse Will add albuterol nebulizer and corticosteroids Hypoalbuminemia Effects iof chronic disease as well as nutritional factors Hypokalemia 3.4 Replete Check Mg HYpocalcemia 7.0 corrected to 8.12 Recheck Full extensive Problem List as per office notes and old charts
[2016-08-05] MEDS: DOCUSATE SODIUM 100 MG CAPSULE (FP) PO SCH (10:19)
[2016-08-05] MEDS: PANTOPRAZOLE SODIUM 100 ML IVPB SCH (10:20)
[2016-08-05] MEDS: POTASSIUM CHLORIDE TABS 20 MEQ TABLET.ER (FP) PO SCH (10:20)
[2016-08-05] MEDS: methylPREDNISolone NA SUCC 40 MG/1 ML VIAL IVPB SCH ×2 (10:20→17:31)
[2016-08-05 13:44] LABS: THYROID STIMULATING HORMONE 1.95 uIU/ml (0.358-3.74)
--- NOTE | 2016-08-05 14:48 | PN ---
GI Progress Note Subjective: GASTROENTEROLOGY HAD BM YESTERDAY AND THIS AM, STARTED ON LIQUIDS, MAIN COMPLAINTS AGAIN IS BACK PAIN - Objective Vital Signs: Vital Signs Temperature 98.2 F 08/05/16 14:38 Pulse Rate 90 08/05/16 14:38 Respiratory Rate 18 08/05/16 14:38 Blood Pressure 142/72 08/05/16 14:38 O2 Sat by Pulse Oximetry (%) 96 08/05/16 09:00 Constitutional: No Distress Eyes: Yes: Conjunctiva Clear HENT: Yes: Normocephalic Neck: Yes: Supple Cardiovascular: Yes: Regular Rate and Rhythm Respiratory: Yes: Regular Gastrointestinal Inspection: Yes: Distention ...Auscultate: Yes: Normoactive Bowel Sounds ...Palpate: Yes: Soft Extremities: Yes: WNL Labs: CBC, BMP 08/05/16 07:15 08/05/16 07:15 Laboratory Tests 08/05/16 08/05/16 07:15 07:15 WBC 9.0 RBC 5.37 H Hgb 9.3 L Hct 30.7 L MCV 57.3 L MCHC 30.1 L RDW 19.1 H Plt Count 129 L Sodium 143 Potassium 3.4 L Chloride 109 H Carbon Dioxide 22 Anion Gap 12 BUN 9 D Creatinine 0.5 L Creat Clearance w eGFR > 60 Random Glucose 65 L D Calcium 7.0 L Magnesium 2.3 Total Protein 6.3 L Albumin 2.6 L TSH 1.95 D Problem List - Problems (1) Small bowel obstruction Assessment/Plan: SEEMS TO BE RESOLVING FURTHER THERAPY AND FOLLOW BY SURGICAL TEAM AGREE WITH SURGICAL TEAM PLAN Code(s): K56.69 - OTHER INTESTINAL OBSTRUCTION (2) Abdominal pain Code(s): R10.9 - UNSPECIFIED ABDOMINAL PAIN Qualifiers: Abdominal location: epigastric Qualified Code(s): R10.13 - Epigastric pain (3) Intractable low back pain Code(s): M54.5 - LOW BACK PAIN (4) Hypothyroid Code(s): E03.9 - HYPOTHYROIDISM, UNSPECIFIED (5) Microcytic anemia Code(s): D50.9 - IRON DEFICIENCY ANEMIA, UNSPECIFIED
[2016-08-05] MEDS: ALBUTEROL SO4 0.083% IH SOL 2.5 MG/3 ML VIAL.NEB. NEB PRN (21:55)
[2016-08-06] MEDS: morphine CARPU-JECT 2 MG/1 ML DISP.SYRIN IVPUSH PRN ×5 (00:14→19:08)
[2016-08-06] MEDS: methylPREDNISolone NA SUCC 40 MG/1 ML VIAL IVPB SCH ×3 (01:31→21:13)
[2016-08-06] MEDS: HEPARIN NA (PORCINE) 5,000 UNITS/ML 1ML VIAL SQ SCH ×3 (06:14→21:12)
[2016-08-06 08:04] LABS: MCHC 30.8 g/dl (32.0-36.0); MEAN CELL VOLUME 57.2 fl (80-96); MEAN PLT VOLUME 8.2 fl (7.5-11.1); PLATELET COUNT 135 K/MM3 (134-434); WHITE BLOOD COUNT 6.6 K/mm3 (4.0-10.0)
[2016-08-06 08:10] LABS: MCH 17.6 pg (25.7-33.7)
[2016-08-06 08:46] LABS: ALBUMIN 2.6 g/dl (3.4-5.0); ALK PHOS 48 U/L (45-117); ANION GAP 9 (8-16); BILIRUBIN,TOTAL 0.4 mg/dL (0.2-1.0); CO2 23 mmol/L (21-32); CREATININE 0.5 mg/dL (0.55-1.02); GLUCOSE,RANDOM 132 mg/dL (74-106); MAGNESIUM 2.4 mg/dL (1.8-2.4); SGOT/AST 14 U/L (15-37); SGPT/ALT 7 U/L (12-78); TOT PROT 6.4 g/dl (6.4-8.2)
--- NOTE | 2016-08-06 08:53 | PN ---
[id number] old with complicated PMHx, presented with abdominal pain and CT findings c/w distal SBO. Attempts at NGT passage were unsuccessful. Currently sitting up in chair OOB, awake alert and responsive and complaining mostly of mid back pain c/w h/o multiple compression fractures. Tolerating clear liquid diet. Had BM according to nurses. Denies new chest discomfort other than right sided rib area pain, palpitations SANTOS or angina. Labs and radiologic studies reviewed. Surgical and GI notes appreciated. Dr Baxter's note appreciated. Await further suggestions. Labs reviewed Selected Entries 08/05/16 08/06/16 21:00 06:35 Temperature 98 F Pulse Rate 67 Respiratory 20 Rate Blood Pressure 144/69 O2 Sat by Pulse 96 Oximetry (%) Oxygen Delivery Room Air Method Weight 108 lb 4 oz Weight Built in Measurement Bedscale Method Laboratory Tests 08/06/16 07:00 WBC 6.6 Hgb 9.1 L Hct 29.6 L Plt Count 135 Chest Lungs clear No wheeze Cor RRR 2/6 systolic murmur Abdomen Soft non-tender Bowel sounds audible this AM Spleen palpable LUQ Ext No new edema Neuro No new focal deficit Assessment and Plan SBO Surgical and GI opinion noted Passing flatus Bowel sounds audible this AM Tolerating clear liquids 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 on daily antibiotic suppression post drainage of right thigh mass Renew daily oral antibiotic On chronic steroids Replace low dose steroids Observe for signs/symptoms of Addisonian crisis Will add iv solumedrol for pulmonary congestion and cough Will taper quickly H/O acid peptic disease/duodenal ulcer Continue PPI Cough/congestion Cough is making her back pain worse Will add albuterol nebulizer and corticosteroids Hypoalbuminemia Effects iof chronic disease as well as nutritional factors Hypokalemia 3.4 Replete Check Mg Today's labs pending HYpocalcemia 7.0 corrected to 8.12 Recheck Today's labs pending Full extensive Problem List as per office notes and old charts
[2016-08-06] MEDS: SODIUM CHLORIDE 1,000 ML IV SCH (10:26)
[2016-08-06 10:27] LABS: METAMYELOCYTE 2 % (0-2)
[2016-08-06] MEDS: PANTOPRAZOLE SODIUM 100 ML IVPB SCH (10:28)
[2016-08-06] MEDS: SULFAMETHOXAZOLE/TRIMETHOPRIM 800MG/160MG D.S. TABLET PO SCH (10:32)
[2016-08-06] MEDS: POTASSIUM CHLORIDE TABS 20 MEQ TABLET.ER (FP) PO SCH (10:34)
[2016-08-06] MEDS: DOCUSATE SODIUM 100 MG CAPSULE (FP) PO SCH (10:34)
[2016-08-06] MEDS: ALBUTEROL SO4 0.083% IH SOL 2.5 MG/3 ML VIAL.NEB. NEB PRN ×2 (11:18→22:52)
--- NOTE | 2016-08-06 14:48 | PN ---
Progress Note (short form) - Note Progress Note: Surgery- Dr. Ross Patient seen and examined. Patient is feeling well, no abdominal pain, tolerating diet. Patient states she is passing gas and had a small BM today. Patient denies nausea/vomiting. Last Vital Signs Temp Pulse Resp BP Pulse Ox 98.8 F 83 18 131/57 96 08/06/16 10:00 08/06/16 10:00 08/06/16 10:00 08/06/16 10:00 08/05/16 21:00 Exam: Gen: NAD, resting comfortably Abd: Soft, nontender, nondistended Problem List - Problems (1) Small bowel obstruction Assessment/Plan: Resolving SBO, no abdominal pain, passing flatus and BM Advance diet as tolerated Continue care per primary team Discussed with Dr. Ross Code(s): K56.69 - OTHER INTESTINAL OBSTRUCTION
--- NOTE | 2016-08-06 19:26 | PN ---
GI Progress Note Subjective: Having bowel movements No abdominal pain Complaining of back pain - Objective Vital Signs: Vital Signs Temperature 98.2 F 08/06/16 18:10 Pulse Rate 67 08/06/16 18:10 Respiratory Rate 18 08/06/16 18:10 Blood Pressure 127/67 08/06/16 18:10 O2 Sat by Pulse Oximetry (%) 96 08/06/16 09:00 Constitutional: Calm Eyes: No: Sclera Icterus Cardiovascular: Yes: Regular Rate and Rhythm. No: Murmur Respiratory: Yes: Diminished (at bases, poor insp effort) Gastrointestinal Inspection: Yes: Distention (softly protuberant) ...Auscultate: Yes: Normoactive Bowel Sounds ...Palpate: No: Tenderness Edema: No (No LE edema) Neurological: Yes: Alert, Oriented Labs: CBC, BMP 08/06/16 07:00 08/06/16 07:00 Hepatic Panel Total Bilirubin 0.4 mg/dL (0.2-1.0) 08/06/16 07:00 AST 14 U/L (15-37) L D 08/06/16 07:00 ALT 7 U/L (12-78) L 08/06/16 07:00 Alkaline Phosphatase 48 U/L (45-117) 08/06/16 07:00 Albumin 2.6 g/dl (3.4-5.0) L 08/06/16 07:00 - ....Imaging X-ray: Report Reviewed Problem List - Problems (1) Small bowel obstruction Assessment/Plan: With ? transition noted on CT scan initially and ileus pattern noted on AXR today. ? resolving SBO. Her chronic narcotic use is also likely altering her GI motility / narcotic bowel Minimize opiates Advance diet as tolerated Code(s): K56.69 - OTHER INTESTINAL OBSTRUCTION
[2016-08-07] MEDS: morphine CARPU-JECT 2 MG/1 ML DISP.SYRIN IVPUSH PRN ×6 (00:21→20:37)
[2016-08-07] MEDS: SODIUM CHLORIDE 1,000 ML IV SCH ×2 (01:51→09:48)
[2016-08-07] MEDS: HEPARIN NA (PORCINE) 5,000 UNITS/ML 1ML VIAL SQ SCH ×3 (06:10→22:00)
[2016-08-07 07:39] LABS: MCHC 30.3 g/dl (32.0-36.0); MEAN CELL VOLUME 57.6 fl (80-96); MEAN PLT VOLUME 8.3 fl (7.5-11.1); PLATELET COUNT 107 K/MM3 (134-434); RDW 19.3 % (11.6-15.6); WHITE BLOOD COUNT 7.2 K/mm3 (4.0-10.0)
[2016-08-07 07:44] LABS: MCH 17.4 pg (25.7-33.7)
[2016-08-07 07:52] LABS: ALBUMIN 2.5 g/dl (3.4-5.0); ALK PHOS 41 U/L (45-117); ANION GAP 5 (8-16); BILIRUBIN,TOTAL 0.3 mg/dL (0.2-1.0); CO2 26 mmol/L (21-32); CREATININE 0.5 mg/dL (0.55-1.02); GLUCOSE,RANDOM 97 mg/dL (74-106); SGOT/AST 11 U/L (15-37); SGPT/ALT 6 U/L (12-78); TOT PROT 5.9 g/dl (6.4-8.2)
[2016-08-07 08:23] LABS: CALCIUM 6.6 mg/dL (8.5-10.1)
--- NOTE | 2016-08-07 08:49 | PN ---
Progress Note (short form) - Note Progress Note: Patient seen and examined Chart reviewed. 85 year old with complicated PMHx, presented with abdominal pain and CT findings c/w distal SBO. Attempts at NGT passage were unsuccessful. Currently lying supine in bed, awake alert and responsive and complaining of ongoing severe mid back pain c/w h/o multiple compression fractures. Tolerating clear liquid diet. Had BM and now has had episodic diarrhea. Denies new chest discomfort other than right sided rib area pain, palpitations SANTOS or angina. Labs and radiologic studies reviewed. Surgical and GI notes appreciated. Await further suggestions from pain management Labs reviewedm Low corrected serum calcium noted. Selected Entries 08/06/16 08/07/16 21:00 07:02 Temperature 98.1 F Pulse Rate 68 Respiratory 20 Rate Blood Pressure 122/58 O2 Sat by Pulse 96 Oximetry (%) Oxygen Delivery Room Air Method Weight 109 lb 7 oz Laboratory Tests 08/07/16 08/07/16 06:15 06:15 WBC 7.2 Hgb 8.7 L Hct 28.7 L Plt Count 107 L D Sodium 144 Potassium 4.5 Chloride 113 H Carbon Dioxide 26 BUN 7 D Creatinine 0.5 L Random Glucose 97 D Calcium 6.6 L* Total Bilirubin 0.3 D AST 11 L D ALT 6 L Alkaline Phosphatase 41 L Total Protein 5.9 L Albumin 2.5 L Chest Lungs clear No wheeze Cor RRR 2/6 systolic murmur Abdomen Soft non-tender Mild distention. Bowel sounds audible this AM Spleen palpable LUQ Ext No new edema Neuro No new focal deficit Assessment and Plan SBO Surgical and GI opinion noted Bowel sounds audible again this AM. 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 on daily antibiotic suppression post drainage of right thigh mass Renew daily oral antibiotic On chronic steroids Replace low dose steroids Observe for signs/symptoms of Addisonian crisis Will add iv solumedrol for pulmonary congestion and cough Will taper quickly H/O acid peptic disease/duodenal ulcer Continue PPI Cough/congestion Cough is making her back pain worse Will add albuterol nebulizer and corticosteroids Hypoalbuminemia Effects iof chronic disease as well as nutritional factors Hypokalemia 3.4 Replete Check Mg Today's labs pending HYpocalcemia Currently 6.6 corrected to 7.8 Recheck with ionized calcium level Full extensive Problem List as per office notes and old charts
[2016-08-07] MEDS: DOCUSATE SODIUM 100 MG CAPSULE (FP) PO SCH (09:54)
[2016-08-07] MEDS: SULFAMETHOXAZOLE/TRIMETHOPRIM 800MG/160MG D.S. TABLET PO SCH (09:56)
[2016-08-07] MEDS: PANTOPRAZOLE 40 MG TABLET (FP) PO SCH (09:56)
[2016-08-07] MEDS: POTASSIUM CHLORIDE TABS 20 MEQ TABLET.ER (FP) PO SCH (09:57)
[2016-08-07] MEDS: methylPREDNISolone NA SUCC 40 MG/1 ML VIAL IVPB SCH (09:57)
[2016-08-07 11:01] LABS: METAMYELOCYTE 1 % (0-2)
[2016-08-07 11:07] LABS: ANISOCYTOSIS 1+; HYPOCHROMIA 3+; MICROCYTOSIS 3+
[2016-08-07 11:08] LABS: OVALOCYTES FEW
[2016-08-07 11:09] LABS: PLATELET ESTIMATE SLT DECREASED (NORMAL)
[2016-08-07] MEDS: ALBUTEROL SO4 0.083% IH SOL 2.5 MG/3 ML VIAL.NEB. NEB PRN (11:15)
[2016-08-07] MEDS: ACETAMINOPHEN 325 MG TABLET (FP) PO PRN (11:54)
[2016-08-07] MEDS: guaiFENesin/D-METHORPHAN HB 10 ML UNIT-DOSE CUPS PO PRN (16:50)
--- NOTE | 2016-08-07 20:08 | PN ---
Progress Note, Physician Chief Complaint: mid back pain History of Present Illness: patient continues to have mid back pain especially with coughing. pain score 9/10 - Current Medication List Current Medications: Active Medications Acetaminophen (Tylenol -) 650 mg PO Q6H PRN PRN Reason: FEVER OR PAIN Last Admin: 08/07/16 11:54 Dose: 650 mg Albuterol Sulfate (Ventolin 0.083% Nebulizer Soln -) 1 amp NEB Q6H PRN PRN Reason: SHORT OF BREATH/WHEEZING Last Admin: 08/07/16 11:15 Dose: 1 amp Docusate Sodium (Colace -) 200 mg PO DAILY [facility] Last Admin: 08/07/16 09:54 Dose: Not Given Guaifenesin (Robitussin Dm -) 10 ml PO Q4H PRN PRN Reason: COUGH Last Admin: 08/07/16 16:50 Dose: 10 ml Heparin Sodium (Porcine) (Heparin -) 5,000 unit SQ TID [facility] Last Admin: 08/07/16 13:49 Dose: 5,000 unit Sodium Chloride (Normal Saline -) 1,000 mls @ 75 mls/hr IV ASDIR [facility] Last Admin: 08/07/16 09:48 Dose: Not Given Methylprednisolone Sodium Succinate (Solu-Medrol -) 20 mg IVPB DAILY [facility] Last Admin: 08/07/16 09:57 Dose: 20 mg Morphine Sulfate (Morphine Injection -) 2 mg IVPUSH Q4H PRN PRN Reason: PAIN Last Admin: 08/07/16 16:49 Dose: 2 mg Ondansetron HCl (Zofran Injection) 4 mg IVPB Q6H PRN PRN Reason: NAUSEA Last Admin: 08/06/16 10:28 Dose: 4 mg Pantoprazole Sodium (Protonix -) 40 mg PO DAILY [facility] Last Admin: 08/07/16 09:56 Dose: 40 mg Potassium Chloride (K-Dur -) 20 meq PO DAILY [facility] Last Admin: 08/07/16 09:57 Dose: 20 meq Trimethoprim/Sulfamethoxazole (Bactrim Ds -) 1 each PO DAILY [facility] Last Admin: 08/07/16 09:56 Dose: 1 each - Objective Vital Signs: Vital Signs Temperature 98 F 08/07/16 16:30 Pulse Rate 70 08/07/16 16:30 Respiratory Rate 20 01/31/17 16:30 Blood Pressure 132/59 01/31/17 16:30 O2 Sat by Pulse Oximetry (%) 96 08/07/16 09:00 Labs: CBC, BMP 08/07/16 06:15 08/07/16 06:15 Assessment/Plan Mid back pain secondary to possible acute fx 1. Bone scan ordered to rule out acute fracture. If bone scan negative, mid back pain most likely secondary to degenerative spine. I would consider a cortisone injection 2. Continue morphine PRN for now
[2016-08-08] MEDS: morphine CARPU-JECT 2 MG/1 ML DISP.SYRIN IVPUSH PRN ×5 (00:34→21:06)
[2016-08-08] MEDS: guaiFENesin/D-METHORPHAN HB 10 ML UNIT-DOSE CUPS PO PRN ×2 (00:37→10:46)
[2016-08-08] MEDS: ACETAMINOPHEN 325 MG TABLET (FP) PO PRN (01:53)
[2016-08-08] MEDS: SODIUM CHLORIDE 1,000 ML IV SCH ×2 (04:52→10:18)
[2016-08-08] MEDS: HEPARIN NA (PORCINE) 5,000 UNITS/ML 1ML VIAL SQ SCH ×3 (05:31→21:08)
--- NOTE | 2016-08-08 09:17 | CONSULT ---
Consult Consult Specialty:: Endocrinology Referred by:: Dr Gupta Reason for Consultation:: Hypocalcemia - History of Present Illness Chief Complaint: Abd pain, Back pain History of Present Illness: This is an 85 year old female with h/o osteoporisis with multiple vertebral fractures, Rt femur fracture, arthritis, PUD, myelodysplastic syndrome, hypothyroidism who was admitted with abdominal pain and found to have SBO. Pt feels better now and is tolerating liquid diet. Pt currently c/o back pain which is only partially responsive to Morphine. Pt awaiting bone scan. Pt referred for management of hypocalcemia. As per pt she gets Prolia twice a year with last one given in June. Denies any family h/o calcium abnormality. No muscle spasms. - History Source History Provided By: Patient, Medical Record - Past Medical History BOOK PUBLISHER: Yes: TIA (Possible 03/2013). 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 No: AFIB, CHF Gastrointestinal: Yes: Peptic Ulcer Disease (duodenitis/gastritis/duodenal ulcer ), Other (Schatzki ring) Hepatobiliary: Yes: Other (GALLSTONES) ...: No Musculoskeletal: Yes: Osteoarthritis, Other (Osteoporosis Compression fractures and kyphoplasty) Rheumatology: Yes: Other (Possible inflamatory arthritis RA or Sjogren's syndrome) Endocrine: Yes: Hypothyroidism - Past Surgical History Past Surgical History: Yes: Joint Replacement (Right Hip Kyphoplasty) - Alcohol/Substance Use Hx Alcohol Use: No History of Substance Use: reports: None - Smoking History Smoking history: Former smoker Have you smoked in the past 12 months: No Aproximately how many cigarettes per day: 0 If you are a former smoker, when did you quit?: 20 years ago - Social History ADL: Independent Occupation: Retired educator History of Recent Travel: No Home Medications - Allergies Allergies/Adverse Reactions: Allergies Allergy/AdvReac Type Severity Reaction Status Date / Time Penicillins Allergy Severe Swelling Verified 08/03/16 08:38 - Home Medications Home Medications: Ambulatory Orders Aspirin [Aspirin EC] 81 mg PO DAILY 03/30/15 Calcium Carb/Magnesium Ox,Carb [Gio-Mag Tablet Chewable] 1 tab PO DAILY Cholecalciferol (Vitamin D3) [Vitamin D3 -] 5,000 unit PO DAILY 03/30/15 Furosemide [Lasix -] 20 mg PO PRN PRN 03/30/15 Potassium Chloride [Klor-Con 10] 10 meq PO DAILY 03/30/15 Sulfamethoxazole/Trimethoprim [Bactrim DS -] 1 each PO DAILY tablet 04/02/15 Pantoprazole Sodium [Protonix] 40 mg PO DAILY 05/03/15 Levothyroxine [Synthroid -] 88 mcg PO DAILY@0700 11/20/15 Prednisone [Deltasone -] 9 mg PO PRN PRN 11/20/15 Morphine *Sr* [Ms Contin -] 5 mg PO Q8H 08/03/16 Family Disease History - Family Disease History Family Disease History: Other: Brother (rheumatoid arthritis), Sister ( osteoarthritis) Review of Systems - Review of Systems Constitutional: reports: Malaise Eyes: reports: No Symptoms HENT: reports: No Symptoms Neck: reports: No Symptoms Cardiovascular: reports: No Symptoms Respiratory: reports: No Symptoms Gastrointestinal: reports: No Symptoms Genitourinary: reports: No Symptoms Breasts: reports: No Symptoms Reported Musculoskeletal: reports: Back Pain Integumentary: reports: No Symptoms Neurological: reports: No Symptoms Endocrine: reports: No Symptoms Hematology/Lymphatic: reports: No Symptoms Physical Exam Vital Signs: Vital Signs Temperature 98.0 F 08/08/16 09:03 Pulse Rate 69 08/08/16 09:03 Respiratory Rate 22 08/08/16 09:03 Blood Pressure 146/68 08/08/16 09:03 O2 Sat by Pulse Oximetry (%) 96 08/07/16 21:00 Constitutional: Yes: Anxious Eyes: Yes: Conjunctiva Clear, EOM Intact HENT: Yes: Atraumatic, Normocephalic Neck: Yes: Supple, Trachea Midline Cardiovascular: Yes: Regular Rate and Rhythm Respiratory: Yes: Regular, CTA Bilaterally Gastrointestinal: Yes: Normal Bowel Sounds Musculoskeletal: Yes: Back Pain Extremities: Yes: WNL Edema: No Neurological: Yes: Alert, Oriented Labs: CBC, BMP 08/07/16 06:15 08/07/16 06:15 Problem List - Problems (1) Abdominal pain Code(s): R10.9 - UNSPECIFIED ABDOMINAL PAIN Qualifiers: Abdominal location: epigastric Qualified Code(s): R10.13 - Epigastric pain (2) Intractable low back pain Code(s): M54.5 - LOW BACK PAIN (3) Small bowel obstruction Code(s): K56.69 - OTHER INTESTINAL OBSTRUCTION (4) Hypothyroid Code(s): E03.9 - HYPOTHYROIDISM, UNSPECIFIED (5) Osteoporosis Code(s): M81.0 - AGE-RELATED OSTEOPOROSIS W/O CURRENT PATHOLOGICAL FRACTURE Assessment/Plan AP: Hypocalcemai: Corrected Ca 7.8 with borderline low Phos Will check with patient's Rheumatology when the last dose of Prolia was administered to rule out that as the cause. 's office closed today Check Ionized Ca, Phos, Mg, Vit D 24 OH and 1,25 OH Intact PTH Magnesium Oxide 400 BID, Pt says she was taking Magnesium supplement at home. Will F/U Back Pain: For Bone Scan SBO Hypothyroidism: Consider restarting LT4 Osteoporosis
--- NOTE | 2016-08-08 09:23 | PN ---
Progress Note (short form) - Note Progress Note: Patient seen and examined Chart reviewed. 85 year old with complicated PMHx, presented with abdominal pain and CT findings c/w distal SBO. Attempts at NGT passage were unsuccessful. Currently remains lying supine in bed, awake alert and responsive and complaining of ongoing severe mid back pain c/w h/o multiple compression fractures. Tolerating full liquid diet. Had BM and episodic diarrhea two days ago. No BM yesterday according to notes. Denies new chest discomfort palpitations SANTOS or angina. Labs and radiologic studies reviewed. Surgical and GI and pain management notes appreciated. Case discussed with Geriatrician. Await Bone Scan results Labs reviewed Low corrected serum calcium noted. Today's labs pending. Selected Entries 08/07/16 08/08/16 21:00 09:03 Temperature 98.0 F Pulse Rate 69 Respiratory 22 Rate Blood Pressure 146/68 O2 Sat by Pulse 96 Oximetry (%) Oxygen Delivery Room Air Method Laboratory Tests 08/06/16 08/07/16 17:30 06:15 WBC 7.2 Hgb 8.7 L Hct 28.7 L Plt Count 107 L D Stool Occult Blood Negative Chest Lungs clear No wheeze Cor RRR 2/6 systolic murmur Abdomen Soft non-tender Mild distention. Bowel sounds audible this AM Spleen palpable LUQ Ext No new edema Neuro No new focal deficit Assessment and Plan SBO Surgical and GI opinion noted Bowel sounds audible again this AM. 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 on daily antibiotic suppression post drainage of right thigh mass Renew daily oral antibiotic On chronic steroids Replace low dose steroids Observe for signs/symptoms of Addisonian crisis Will add iv solumedrol for pulmonary congestion and cough Will taper quickly H/O acid peptic disease/duodenal ulcer Continue PPI Cough/congestion Cough is making her back pain worse Will add albuterol nebulizer and corticosteroids Hypoalbuminemia Effects iof chronic disease as well as nutritional factors Hypokalemia 3.4 Replete Check Mg Today's labs pending HYpocalcemia Recheck with ionized calcium level and phosphorus level Full extensive Problem List as per office notes and old charts
[2016-08-08] MEDS ORDERED: PT OWN MED DRAWER 7, Y5N ONE (10:13)
[2016-08-08] MEDS: methylPREDNISolone NA SUCC 40 MG/1 ML VIAL IVPB SCH (10:16)
[2016-08-08] MEDS: PANTOPRAZOLE 40 MG TABLET (FP) PO SCH (10:17)
[2016-08-08] MEDS: SULFAMETHOXAZOLE/TRIMETHOPRIM 800MG/160MG D.S. TABLET PO SCH (10:17)
[2016-08-08] MEDS: POTASSIUM CHLORIDE TABS 20 MEQ TABLET.ER (FP) PO SCH (10:17)
[2016-08-08] MEDS: DOCUSATE SODIUM 100 MG CAPSULE (FP) PO SCH (10:17)
[2016-08-08] MEDS: LEVOTHYROXINE NA 88 MCG TABLET (FP) PO SCH (10:43)
[2016-08-08] MEDS: MAGNESIUM OXIDE 400 MG TABLET (FP) PO SCH (21:07)
[2016-08-09] MEDS ORDERED: methylPREDNISolone ACET (DEPO) 80 MG/1 ML VIAL IJ ONE
[2016-08-09] MEDS ORDERED: IOHEXOL 180 MG/1 ML ML IJ ONE
[2016-08-09] MEDS: morphine CARPU-JECT 2 MG/1 ML DISP.SYRIN IVPUSH PRN (04:55)
[2016-08-09] MEDS: LEVOTHYROXINE NA 88 MCG TABLET (FP) PO SCH (06:36)
[2016-08-09] MEDS: HEPARIN NA (PORCINE) 5,000 UNITS/ML 1ML VIAL SQ SCH (06:36)
[2016-08-09] MEDS: SODIUM CHLORIDE 1,000 ML IV SCH ×2 (06:36→11:06)
--- NOTE | 2016-08-09 07:04 | PN ---
Progress Note (short form) - Note Progress Note: patient seen and examined. the bone scan results were reviewed- extensive degenerative changes and no acute fx patient continues to reports severe pain in her mid back especially with coughing pain score 9/10 PE: bilateral tenderness over the mid back region A: THoracic spondylosis/degenerative disc disease P: 1. Lidocaine patch to affected area 2. Patient would like a cortisone shot- i will try to perform it later in the afternoon 3. Hold heparin this morning
[2016-08-09 07:59] LABS: MCHC 30.5 g/dl (32.0-36.0); MEAN CELL VOLUME 57.7 fl (80-96); MEAN PLT VOLUME 8.5 fl (7.5-11.1); RDW 19.6 % (11.6-15.6)
[2016-08-09 08:29] LABS: MCH 17.6 pg (25.7-33.7)
[2016-08-09 08:33] LABS: ALBUMIN 2.7 g/dl (3.4-5.0); ANION GAP 8 (8-16); BILIRUBIN,TOTAL 0.4 mg/dL (0.2-1.0); CO2 26 mmol/L (21-32); CREATININE 0.4 mg/dL (0.55-1.02); GLUCOSE,RANDOM 84 mg/dL (74-106); MAGNESIUM 1.9 mg/dL (1.8-2.4); PHOSPHOROUS 1.4 mg/dL (2.5-4.9); SGOT/AST 15 U/L (15-37); SGPT/ALT 10 U/L (12-78); TOT PROT 6.1 g/dl (6.4-8.2)
[2016-08-09 08:34] LABS: ALK PHOS 48 U/L (45-117)
--- NOTE | 2016-08-09 09:12 | PN ---
[id number] old with complicated PMHx, presented with abdominal pain and CT findings c/w distal SBO. Currently remains lying supine in bed, awake alert and responsive and complaining of ongoing severe mid back pain c/w h/o multiple compression fractures. Bone scan does not reveal findings of an acute fracture and is more c/w severe osteoarthritis. No improvement with Lidoderm patch. To consider injection as per Dr Baxter. Tolerating full liquid diet, but feels uncomfortable eating this AM. Had BM and episodic diarrhea three days ago. Denies new chest discomfort palpitations SANTOS or angina, but cough persists. Labs and radiologic studies reviewed. Surgical, GI and pain management notes appreciated. Case discussed with Electrical Engineer Mep. Bone Scan results reviewed as above. Labs reviewed Patients sister yesterday at [facility] Selected Entries 08/08/16 08/09/16 21:00 06:46 Temperature 97.7 F Pulse Rate 68 Respiratory 20 Rate Blood Pressure 150/74 O2 Sat by Pulse 95 Oximetry (%) Oxygen Delivery Room Air Method Weight 110 lb 3 oz Weight Built in Measurement Bedscale Method Laboratory Tests 08/09/16 06:20 WBC 8.0 Hgb 9.6 L D Hct 31.6 L Plt Count Pending Laboratory Tests 08/09/16 06:20 Sodium 139 Potassium 4.1 Chloride 105 Carbon Dioxide 26 Creatinine 0.4 L Creat Clearance w eGFR > 60 Random Glucose 84 Calcium 8.0 L D Phosphorus 1.4 L D Magnesium 1.9 D Total Bilirubin 0.4 D AST 15 D ALT 10 L D Alkaline Phosphatase 48 Total Protein 6.1 L Chest Lungs clear No wheeze Evidence of upper airway congestion with cough Cor RRR 2/6 systolic murmur Abdomen Soft non-tender Mild distention. Bowel sounds audible this AM Spleen palpable LUQ Ext No new edema Neuro No new focal deficit Assessment and Plan SBO Surgical and GI opinion noted Bowel sounds audible again this AM. 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 Dr Moscoso's note and input appreciated Receives Prolia twice yearly 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 on daily antibiotic suppression post drainage of right thigh mass Renew daily oral antibiotic On chronic steroids Replace low dose steroids Observe for signs/symptoms of Addisonian crisis Will add iv solumedrol for pulmonary congestion and cough Will taper quickly H/O acid peptic disease/duodenal ulcer Continue PPI Cough/congestion Cough is making her back pain worse Will add albuterol nebulizer and corticosteroids Hypoalbuminemia Effects of chronic disease as well as nutritional factors Hypokalemia 3.4>>4.1 Replete Mg 1.9 Hypocalcemia Recheck Ionized calcium level pending Phosphorus level low Today's Ca++ level 8.0 with albumin of 2.7 corrected to 9.01 Full extensive Problem List as per office notes and old charts Laboratory Tests 08/09/16 06:20 Albumin 2.7 L
[2016-08-09] MEDS ORDERED: PT OWN MED DRAWER 7, Y5N ONE (09:16)
[2016-08-09] MEDS: POTASSIUM CHLORIDE TABS 20 MEQ TABLET.ER (FP) PO SCH (09:20)
[2016-08-09] MEDS: DOCUSATE SODIUM 100 MG CAPSULE (FP) PO SCH (09:20)
[2016-08-09] MEDS: SULFAMETHOXAZOLE/TRIMETHOPRIM 800MG/160MG D.S. TABLET PO SCH (09:20)
[2016-08-09] MEDS: LIDOCAINE 5% TOPICAL PATCH TP SCH (09:21)
[2016-08-09] MEDS: MAGNESIUM OXIDE 400 MG TABLET (FP) PO SCH ×2 (09:21→21:38)
[2016-08-09] MEDS: methylPREDNISolone NA SUCC 40 MG/1 ML VIAL IVPB SCH (09:21)
[2016-08-09] MEDS: PANTOPRAZOLE 40 MG TABLET (FP) PO SCH (09:21)
--- NOTE | 2016-08-09 09:35 | PN ---
Progress Note (short form) - Note Progress Note: C/O Back pain No BM today Calcium improving Vital Signs Period Temp Pulse Resp BP Sys/Ramirez Pulse Ox Last 24 Hr 97.7 F-97.9 F 66-87 18-20 133-150/66-74 95 PE: AOx3 Neck: Supple, No JVD HEENT: PERRL EOMI Lungs: CTA CVS: S1S2 Abd: Benign EXT: No edema Neuro: No focal deficit CMP Sodium 139 mmol/L (136-145) 08/09/16 06:20 Potassium 4.1 mmol/L (3.5-5.1) 08/09/16 06:20 Chloride 105 mmol/L (98-107) 08/09/16 06:20 Carbon Dioxide 26 mmol/L (21-32) 08/09/16 06:20 Anion Gap 8 (8-16) 08/09/16 06:20 BUN 9 mg/dL (7-18) D 08/09/16 06:20 Creatinine 0.4 mg/dL (0.55-1.02) L 08/09/16 06:20 Creat Clearance w eGFR > 60 (>60) 08/09/16 06:20 Random Glucose 84 mg/dL (74-106) 08/09/16 06:20 Calcium 8.0 mg/dL (8.5-10.1) L D 08/09/16 06:20 Phosphorus 1.4 mg/dL (2.5-4.9) L D 08/09/16 06:20 Magnesium 1.9 mg/dL (1.8-2.4) D 08/09/16 06:20 Total Bilirubin 0.4 mg/dL (0.2-1.0) D 08/09/16 06:20 AST 15 U/L (15-37) D 08/09/16 06:20 ALT 10 U/L (12-78) L D 08/09/16 06:20 Alkaline Phosphatase 48 U/L (45-117) 08/09/16 06:20 Creatine Kinase 24 IU/L (26-192) L 08/03/16 09:40 Troponin I < 0.02 ng/ml (0.00-0.05) 08/03/16 09:40 Total Protein 6.1 g/dl (6.4-8.2) L 08/09/16 06:20 Albumin 2.7 g/dl (3.4-5.0) L 08/09/16 06:20 Lipase 87 U/L (73-393) 08/03/16 09:40 TSH 1.95 uIU/ml (0.358-3.74) D 08/05/16 07:15 Current Medications Generic Name Dose Route Start Last Admin Trade Name Freq PRN Reason Stop Dose Admin Acetaminophen 650 mg 08/07/16 08:51 08/08/16 01:53 Tylenol - PO 650 mg Q6H PRN Administration FEVER OR PAIN Albuterol Sulfate 1 amp 08/05/16 09:21 08/07/16 11:15 Ventolin 0.083% Nebulizer Soln - NEB 1 amp Q6H PRN Administration SHORT OF BREATH/WHEEZING Docusate Sodium 200 mg 08/05/16 10:00 08/09/16 09:20 Colace - PO 200 mg DAILY DENISE Administration Guaifenesin 10 ml 08/07/16 16:38 08/08/16 10:46 Robitussin Dm - PO 10 ml Q4H PRN Administration COUGH Sodium Chloride 1,000 mls @ 42 mls/hr 08/08/16 09:23 08/09/16 06:36 Normal Saline - IV 42 mls/hr ASDIR DENISE Administration Levothyroxine Sodium 88 mcg 08/08/16 09:45 08/09/16 06:36 Synthroid - PO 88 mcg [id number] DENISE Administration Lidocaine 1 patch 08/09/16 10:00 08/09/16 09:21 Lidoderm Patch - TP 1 patch DAILY DENISE Administration Magnesium Oxide 400 mg 08/08/16 22:00 08/09/16 09:21 Mag-Ox - PO 400 mg BID DENISE Administration Methylprednisolone Sodium Succinate 20 mg 08/07/16 10:00 08/09/16 09:21 Solu-Medrol - IVPB 20 mg DAILY DENISE Administration Ondansetron HCl 4 mg 08/03/16 15:41 08/06/16 10:28 Zofran Injection IVPB 4 mg Q6H PRN Administration NAUSEA Pantoprazole Sodium 40 mg 08/07/16 10:00 08/09/16 09:21 Protonix - PO 40 mg DAILY DENISE Administration Potassium Chloride 20 meq 08/05/16 10:00 08/09/16 09:20 K-Dur - PO 20 meq DAILY DENISE Administration Trimethoprim/Sulfamethoxazole 1 each 08/06/16 10:00 08/09/16 09:20 Bactrim Ds - PO 1 each DAILY DENISE Administration AP: Hypocalcemia: resolving Corrected Ca 9.0 today Ionized CA, PTH, 1,25 Vit D pending Prolia administered mid June as per pt so unlikely to be the cause of the hypocalcemia Monitor calcium, Will F/U Hypothyroidism: LT4 88 6 days per week Osteoporosis Problem List - Problems (1) Abdominal pain Code(s): R10.9 - UNSPECIFIED ABDOMINAL PAIN Qualifiers: Abdominal location: epigastric Qualified Code(s): R10.13 - Epigastric pain (2) Intractable low back pain Code(s): M54.5 - LOW BACK PAIN (3) Small bowel obstruction Code(s): K56.69 - OTHER INTESTINAL OBSTRUCTION (4) Hypothyroid Code(s): E03.9 - HYPOTHYROIDISM, UNSPECIFIED (5) Osteoporosis Code(s): M81.0 - AGE-RELATED OSTEOPOROSIS W/O CURRENT PATHOLOGICAL FRACTURE
[2016-08-09] MEDS: ACETAMINOPHEN 325 MG TABLET (FP) PO PRN ×2 (10:03→21:39)
[2016-08-09 11:03] LABS: PLATELET COUNT 88 K/MM3 (134-434); PLATELET ESTIMATE MOD DECREASED (NORMAL)
[2016-08-09] MEDS: guaiFENesin/D-METHORPHAN HB 10 ML UNIT-DOSE CUPS PO PRN (11:50)
[2016-08-09] MEDS ORDERED: methylPREDNISolone ACET (DEPO) 40 MG/1 ML VIAL ONE (16:27)
[2016-08-09] MEDS ORDERED: BUPIVACAINE HCL/PF 0.25% (2.5MG/ML) 10 ML VIAL ONE (16:28)
[2016-08-09] MEDS ORDERED: TRIAMCINOLONE ACET 40MG/1ML VIAL ONE (16:28)
[2016-08-09] MEDS ORDERED: BUPIVACAINE HCL/PF 0.25% (2.5MG/ML) 10 ML VIAL IJ ONE ×2 (18:56)
[2016-08-09] MEDS ORDERED: TRIAMCINOLONE ACET 40MG/1ML VIAL IM ONE (18:57)
--- NOTE | 2016-08-09 19:04 | PN ---
Progress Note (short form) - Note Progress Note: bilateral thoracic facet blocks performed no complications may restart heparin tomorrow after 7pm
[2016-08-10] MEDS: LEVOTHYROXINE NA 88 MCG TABLET (FP) PO SCH (06:06)
[2016-08-10 08:03] LABS: ALBUMIN 3.2 g/dl (3.4-5.0); ANION GAP 8 (8-16); BILIRUBIN,TOTAL 0.5 mg/dL (0.2-1.0); CALCIUM 8.4 mg/dL (8.5-10.1); CO2 28 mmol/L (21-32); CREATININE 0.6 mg/dL (0.55-1.02); GLUCOSE,RANDOM 112 mg/dL (74-106); SGOT/AST 14 U/L (15-37); SGPT/ALT 10 U/L (12-78); TOT PROT 7.2 g/dl (6.4-8.2)
[2016-08-10 08:04] LABS: ALK PHOS 55 U/L (45-117)
[2016-08-10 08:26] LABS: MEAN CELL VOLUME 57.8 fl (80-96); PLATELET COUNT 104 K/MM3 (134-434); RDW 19.9 % (11.6-15.6); WHITE BLOOD COUNT 12.1 K/mm3 (4.0-10.0)
[2016-08-10 08:27] LABS: MCH 17.4 pg (25.7-33.7)
--- NOTE | 2016-08-10 08:44 | PN ---
Progress Note (short form) - Note Progress Note: Patient seen and examined Chart reviewed. 85 year old with complicated PMHx, presented with abdominal pain and CT findings c/w distal SBO. Currently remains lying supine in bed, awake alert and responsive and complaining of ongoing severe mid back pain c/w h/o multiple compression fractures, despite undergoing bilateral spinal epidural injections yesterday with Dr Baxter. Operative notes reviewed. Bone scan did not reveal findings of an acute fracture but was more c/w severe osteoarthritis. No improvement with Lidoderm patch. Tolerating full liquid diet. Having BMs regularly. Denies new chest discomfort palpitations SANTOS or angina, but cough persists. Labs and radiologic studies reviewed. Surgical, GI and pain management notes appreciated. Case discussed with Kraft Digester Operator. Labs reviewed Patients sister Saturday at [facility] Selected Entries 08/09/16 08/10/16 08/10/16 21:00 01:56 06:53 Temperature 97.8 F Pulse Rate 74 Respiratory 20 Rate Blood Pressure 157/77 O2 Sat by Pulse 98 Oximetry (%) Oxygen Delivery Room Air Method Weight 113 lb 6 oz Laboratory Tests 08/10/16 06:15 Sodium 137 Carbon Dioxide 28 BUN 12 D Creatinine 0.6 D Random Glucose 112 H D Calcium 8.4 L Total Bilirubin 0.5 D AST 14 L ALT 10 L Alkaline Phosphatase 55 Total Protein 7.2 Albumin 3.2 L Laboratory Tests 08/10/16 06:15 Potassium 4.4 Chest Lungs clear No wheeze Evidence of mild upper airway congestion with cough Cor RRR 2/6 systolic murmur Abdomen Soft non-tender Mild distention. Bowel sounds audible this AM Spleen palpable LUQ Ext No new edema Neuro No new focal deficit Assessment and Plan SBO Surgical and GI opinion noted Bowel sounds audible again this AM. 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 Today's CBC pending Inflammatory arthritis Possible RA and Sjogren's syndrome Chronic hypergammaglobulinemia Hypothyroid Follow closely TSH noted Restarted outpatient levothyroxine dose Cholelithiasis Noted on Ultrasound ordered by Dr Pierce 03/2016 AAA 3.4 cm with bilateral iliac artery aneurysms Osteoporosis with multiple spinal compression fractures of the thoracic and lumbar spine post kyphoplasties Has new back pain Dr Baxter's input appreciated. Dr Moscoso's note and input appreciated Receives Prolia twice yearly Further labs pending 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 on daily antibiotic suppression post drainage of right thigh mass Renew daily oral antibiotic On chronic steroids Replace low dose steroids Observe for signs/symptoms of Addisonian crisis Will add iv solumedrol for pulmonary congestion and cough Will taper quickly H/O acid peptic disease/duodenal ulcer Continue PPI as needed Cough/congestion Cough is making her back pain worse Will add albuterol nebulizer and corticosteroids Hypoalbuminemia Effects of chronic disease as well as nutritional factors Hypokalemia 3.4>>4.1>>4.4 Replete Mg 1.9 Hypocalcemia Recheck Ionized calcium level pending Phosphorus level low Today's Ca++ level 8.4 with albumin of 3.2 corrected to 9.04 Full extensive Problem List as per office notes and old charts
[2016-08-10] MEDS ORDERED: PT OWN MED DRAWER 7, Y5N ONE (09:39)
[2016-08-10] MEDS: SULFAMETHOXAZOLE/TRIMETHOPRIM 800MG/160MG D.S. TABLET PO SCH (09:47)
[2016-08-10] MEDS: POTASSIUM CHLORIDE TABS 20 MEQ TABLET.ER (FP) PO SCH (09:48)
[2016-08-10] MEDS: DOCUSATE SODIUM 100 MG CAPSULE (FP) PO SCH (09:48)
[2016-08-10] MEDS: LIDOCAINE 5% TOPICAL PATCH TP SCH (09:49)
[2016-08-10] MEDS: PANTOPRAZOLE 40 MG TABLET (FP) PO SCH (09:49)
[2016-08-10] MEDS: MAGNESIUM OXIDE 400 MG TABLET (FP) PO SCH ×2 (09:49→22:06)
[2016-08-10] MEDS: morphine CARPU-JECT 2 MG/1 ML DISP.SYRIN IVPUSH PRN ×3 (09:49→18:56)
[2016-08-10] MEDS: predniSONE 10 MG TABLET (UD) PO SCH (09:50)
[2016-08-10] MEDS: guaiFENesin/D-METHORPHAN HB 10 ML UNIT-DOSE CUPS PO PRN (09:50)
--- NOTE | 2016-08-10 12:58 | PN ---
Progress Note (short form) - Note Progress Note: Still with Back pain Had BM today Calcium improving, Low Phos Vital Signs Period Temp Pulse Resp BP Sys/Ramirez Pulse Ox Last 24 Hr 97.8 F-98.4 F 72-89 18-26 109-157/50-77 96-98 PE: AOx3 Neck: Supple, No JVD HEENT: PERRL EOMI, Yellowish pigmentation/plaques over face mainly around the eyes and left side of face and anterior chest wall Lungs: CTA CVS: S1S2 Abd: Benign EXT: No edema Neuro: No focal deficit CMP Sodium 137 mmol/L (136-145) 08/10/16 06:15 Potassium 4.4 mmol/L (3.5-5.1) 08/10/16 06:15 Chloride 101 mmol/L (98-107) 08/10/16 06:15 Carbon Dioxide 28 mmol/L (21-32) 08/10/16 06:15 Anion Gap 8 (8-16) 08/10/16 06:15 BUN 12 mg/dL (7-18) D 08/10/16 06:15 Creatinine 0.6 mg/dL (0.55-1.02) D 08/10/16 06:15 Creat Clearance w eGFR > 60 (>60) 08/10/16 06:15 Random Glucose 112 mg/dL (74-106) H D 08/10/16 06:15 Calcium 8.4 mg/dL (8.5-10.1) L 08/10/16 06:15 Phosphorus 1.4 mg/dL (2.5-4.9) L D 08/09/16 06:20 Magnesium 1.9 mg/dL (1.8-2.4) D 08/09/16 06:20 Total Bilirubin 0.5 mg/dL (0.2-1.0) D 08/10/16 06:15 AST 14 U/L (15-37) L 08/10/16 06:15 ALT 10 U/L (12-78) L 08/10/16 06:15 Alkaline Phosphatase 55 U/L (45-117) 08/10/16 06:15 Creatine Kinase 24 IU/L (26-192) L 08/03/16 09:40 Troponin I < 0.02 ng/ml (0.00-0.05) 08/03/16 09:40 Total Protein 7.2 g/dl (6.4-8.2) 08/10/16 06:15 Albumin 3.2 g/dl (3.4-5.0) L 08/10/16 06:15 Lipase 87 U/L (73-393) 08/03/16 09:40 TSH 1.95 uIU/ml (0.358-3.74) D 08/05/16 07:15 Current Medications Generic Name Dose Route Start Last Admin Trade Name Freq PRN Reason Stop Dose Admin Acetaminophen 650 mg 08/07/16 08:51 08/09/16 21:39 Tylenol - PO 650 mg Q6H PRN Administration FEVER OR PAIN Docusate Sodium 200 mg 08/05/16 10:00 08/10/16 09:48 Colace - PO 200 mg DAILY DENISE Administration Guaifenesin 10 ml 08/07/16 16:38 08/10/16 09:50 Robitussin Dm - PO 10 ml Q4H PRN Administration COUGH Levothyroxine Sodium 88 mcg 08/08/16 09:45 08/10/16 06:06 Synthroid - PO 88 mcg [id number] DENISE Administration Lidocaine 1 patch 08/09/16 10:00 08/10/16 09:49 Lidoderm Patch - TP 1 patch DAILY DENISE Administration Magnesium Oxide 400 mg 08/08/16 22:00 08/10/16 09:49 Mag-Ox - PO 400 mg BID DENISE Administration Morphine Sulfate 2 mg 08/10/16 08:48 08/10/16 09:49 Morphine Injection - IVPUSH 2 mg Q4H PRN Administration PAIN Ondansetron HCl 4 mg 08/03/16 15:41 08/06/16 10:28 Zofran Injection IVPB 4 mg Q6H PRN Administration NAUSEA Pantoprazole Sodium 40 mg 08/07/16 10:00 08/10/16 09:49 Protonix - PO 40 mg DAILY DENISE Administration Potassium Chloride 20 meq 08/05/16 10:00 08/10/16 09:48 K-Dur - PO 20 meq DAILY DENISE Administration Prednisone 10 mg 08/10/16 10:00 08/10/16 09:50 Deltasone - PO 10 mg DAILY DENISE Administration Trimethoprim/Sulfamethoxazole 1 each 08/06/16 10:00 08/10/16 09:47 Bactrim Ds - PO 1 each DAILY DENISE Administration AP: Hypocalcemia: resolving Corrected Ca 9.0 today Ionized CA, PTH, 1,25 Vit D pending Prolia administered mid June as per pt so unlikely to be the cause of the hypocalcemia Monitor calcium, Will F/U Hypothyroidism: LT4 88mcg 6 days per week Osteoporosis Hypophosphatemia: possbily from refeeding, IV hydration. Pt was on vit D as outpt. Consider restarting Vitamin D as low level may contribute to hypohosphatemia. Was on Vitamin D 5000 units per day as per pt. Yellowish discoloration of skin over face, ant chest wall: Consider Dermatology consult. Problem List - Problems (1) Abdominal pain Code(s): R10.9 - UNSPECIFIED ABDOMINAL PAIN Qualifiers: Abdominal location: epigastric Qualified Code(s): R10.13 - Epigastric pain (2) Intractable low back pain Code(s): M54.5 - LOW BACK PAIN (3) Small bowel obstruction Code(s): K56.69 - OTHER INTESTINAL OBSTRUCTION (4) Hypothyroid Code(s): E03.9 - HYPOTHYROIDISM, UNSPECIFIED (5) Osteoporosis Code(s): M81.0 - AGE-RELATED OSTEOPOROSIS W/O CURRENT PATHOLOGICAL FRACTURE
[2016-08-10 13:26] LABS: ANISOCYTOSIS 1+; FRAGMENTED CELL 1+; HYPOCHROMIA 2+; METAMYELOCYTE 2 % (0-2); MICROCYTOSIS 1+; OVALOCYTES 1+; POIKILOCYTOSIS 2+; TEAR DROP CELLS 1+
[2016-08-10 14:15] LABS: CALCIUM 7.9 mg/dL (8.7-10.3)
[2016-08-11] MEDS: morphine CARPU-JECT 2 MG/1 ML DISP.SYRIN IVPUSH PRN ×6 (00:18→21:30)
[2016-08-11] MEDS: LEVOTHYROXINE NA 88 MCG TABLET (FP) PO SCH (06:25)
[2016-08-11 08:13] LABS: MCHC 30.7 g/dl (32.0-36.0); MEAN CELL VOLUME 57.1 fl (80-96); MEAN PLT VOLUME 8.4 fl (7.5-11.1); RDW 19.6 % (11.6-15.6); WHITE BLOOD COUNT 9.5 K/mm3 (4.0-10.0)
[2016-08-11 08:14] LABS: MCH 17.5 pg (25.7-33.7)
[2016-08-11 09:11] LABS: SGOT/AST 11 U/L (15-37)
[2016-08-11 09:15] LABS: ALBUMIN 2.9 g/dl (3.4-5.0); ALK PHOS 53 U/L (45-117); ANION GAP 8 (8-16); BILIRUBIN,TOTAL 0.4 mg/dL (0.2-1.0); CALCIUM 8.4 mg/dL (8.5-10.1); CO2 27 mmol/L (21-32); CREATININE 0.5 mg/dL (0.55-1.02); GLUCOSE,RANDOM 95 mg/dL (74-106); PHOSPHOROUS 3.7 mg/dL (2.5-4.9); SGPT/ALT 9 U/L (12-78); TOT PROT 6.6 g/dl (6.4-8.2)
[2016-08-11] MEDS: DOCUSATE SODIUM 100 MG CAPSULE (FP) PO SCH (09:51)
[2016-08-11] MEDS: LIDOCAINE 5% TOPICAL PATCH TP SCH (09:51)
[2016-08-11] MEDS: MAGNESIUM OXIDE 400 MG TABLET (FP) PO SCH ×2 (09:52→21:19)
[2016-08-11] MEDS: predniSONE 10 MG TABLET (UD) PO SCH (09:52)
[2016-08-11] MEDS: SULFAMETHOXAZOLE/TRIMETHOPRIM 800MG/160MG D.S. TABLET PO SCH (09:52)
[2016-08-11] MEDS: PANTOPRAZOLE 40 MG TABLET (FP) PO SCH (09:52)
[2016-08-11] MEDS: POTASSIUM CHLORIDE TABS 20 MEQ TABLET.ER (FP) PO SCH (09:52)
[2016-08-11 10:58] LABS: PLATELET COMMENT2 NO CLOTTING DETECTED; PLATELET ESTIMATE DECREASED (NORMAL); POLYCHROMASIA 2+
[2016-08-11 10:59] LABS: ANISOCYTOSIS 2+; FRAGMENTED CELL 1+; HYPOCHROMIA 1+; MICROCYTOSIS 2+; POIKILOCYTOSIS 2+
[2016-08-11 11:48] LABS: PLATELET COUNT 83 K/MM3 (134-434)
--- NOTE | 2016-08-11 12:18 | PN ---
Progress Note (short form) - Note Progress Note: Patient seen and examined. C/O Severe back pain. Aggravated by movements and cough. Not controlled with current morphine treatment. On liquid diet and tolerating well. No nausea, vomiting, abdominal pain. Had BM yesterday. None since morning. Flatus + Afebrile Denies chest pain, shortness of breath, palpitation or dizziness. denies headache or blurring of vision. O/E: Not in acute distress Vital Signs Period Temp Pulse Resp BP Sys/Ramirez Pulse Ox Last 24 Hr 97.9 F-98.4 F 59-78 18-20 123-140/55-78 96 RS: Air entry decreased B/L lung base CVS: s1s2 normal Abdomen: Soft, non tender, BS present. No G/R Microbiology 08/06/16 16:30 Rectal Swab VRE Culture - Final Vanco Resistant Enterococcus 08/06/16 14:00 Nasopharyngeal Swab Respiratory Virus Panel - Preliminary 08/06/16 14:00 Nasopharyngeal Swab Influenza Types A,B Antigen (HARRISON) - Final 08/06/16 14:00 Nasopharyngeal Swab - Final CBC, BMP 08/11/16 06:15 08/11/16 06:15 Current Medications Generic Name Dose Route Start Last Admin Trade Name Freq PRN Reason Stop Dose Admin Acetaminophen 650 mg 08/07/16 08:51 08/09/16 21:39 Tylenol - PO 650 mg Q6H PRN Administration FEVER OR PAIN Docusate Sodium 200 mg 08/05/16 10:00 08/11/16 09:51 Colace - PO 200 mg DAILY DENISE Administration Guaifenesin 10 ml 08/07/16 16:38 08/10/16 09:50 Robitussin Dm - PO 10 ml Q4H PRN Administration COUGH Levothyroxine Sodium 88 mcg 08/08/16 09:45 08/11/16 06:25 Synthroid - PO 88 mcg [id number] DENISE Administration Lidocaine 1 patch 08/09/16 10:00 08/11/16 09:51 Lidoderm Patch - TP 1 patch DAILY DENISE Administration Magnesium Oxide 400 mg 08/08/16 22:00 08/11/16 09:52 Mag-Ox - PO 400 mg BID DENISE Administration Morphine Sulfate 2 mg 08/10/16 08:48 08/11/16 09:49 Morphine Injection - IVPUSH 2 mg Q4H PRN Administration PAIN Ondansetron HCl 4 mg 08/03/16 15:41 08/06/16 10:28 Zofran Injection IVPB 4 mg Q6H PRN Administration NAUSEA Pantoprazole Sodium 40 mg 08/07/16 10:00 08/11/16 09:52 Protonix - PO 40 mg DAILY DENISE Administration Potassium Chloride 20 meq 08/05/16 10:00 08/11/16 09:52 K-Dur - PO 20 meq DAILY DENISE Administration Prednisone 10 mg 08/10/16 10:00 08/11/16 09:52 Deltasone - PO 10 mg DAILY DENISE Administration Trimethoprim/Sulfamethoxazole 1 each 08/06/16 10:00 08/11/16 09:52 Bactrim Ds - PO 1 each DAILY DENISE Administration A/P: - SBO: Tolerating liquid diet. Advance diet as tolerated. Surgery/GI following the case. - THoracic spondylosis/degenerative disc disease/No acute fractures Still c/o severe pain on morphine 2 mg iV Q4 prn and lidocaine patech. Will increase morphine to 2 mg IV Q3 prn for better pain management. Pain management on the case. - Hypocalcemia: Corrected calcium 9.3. - Osteoporosis with multiple spinal compression fractures of the thoracic and lumbar spine post kyphoplasties Has new back pain Dr Baxter's input appreciated. 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 - Inflammatory arthritis Possible RA and Sjogren's syndrome Chronic hypergammaglobulinemia. - Hypothyroid: Continue levothyroxine. - Cholelithiasis Noted on Ultrasound ordered by Dr Pierce 03/2016 - AAA 3.4 cm with bilateral iliac artery aneurysms - 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 on daily antibiotic suppression post drainage of right thigh mass Renew daily oral antibiotic. - H/O acid peptic disease/duodenal ulcer Continue PPI as needed - Cough/congestion Cough is making her back pain worse. Continue albuterol nebulizer and corticosteroids. - Hypoalbuminemia Effects of chronic disease as well as nutritional factors - Hypokalemia: Repleted.
[2016-08-12] MEDS: morphine CARPU-JECT 2 MG/1 ML DISP.SYRIN IVPUSH PRN ×6 (00:33→20:17)
[2016-08-12 07:58] LABS: ALBUMIN 2.8 g/dl (3.4-5.0); ANION GAP 8 (8-16); CALCIUM 7.8 mg/dL (8.5-10.1); CO2 28 mmol/L (21-32); CREATININE 0.6 mg/dL (0.55-1.02); GLUCOSE,RANDOM 95 mg/dL (74-106); SGOT/AST 11 U/L (15-37); SGPT/ALT 9 U/L (12-78)
[2016-08-12 07:59] LABS: ALK PHOS 47 U/L (45-117); BILIRUBIN,TOTAL 0.3 mg/dL (0.2-1.0); TOT PROT 6.3 g/dl (6.4-8.2)
[2016-08-12 08:36] LABS: MCHC 30.5 g/dl (32.0-36.0); MEAN CELL VOLUME 57.5 fl (80-96); MEAN PLT VOLUME 8.4 fl (7.5-11.1); PLATELET COUNT 76 K/MM3 (134-434); RDW 19.8 % (11.6-15.6); WHITE BLOOD COUNT 9.5 K/mm3 (4.0-10.0)
[2016-08-12 08:37] LABS: MCH 17.5 pg (25.7-33.7)
[2016-08-12] MEDS: predniSONE 10 MG TABLET (UD) PO SCH (10:00)
[2016-08-12] MEDS: MAGNESIUM OXIDE 400 MG TABLET (FP) PO SCH ×2 (10:00→21:44)
[2016-08-12] MEDS: DOCUSATE SODIUM 100 MG CAPSULE (FP) PO SCH (10:00)
[2016-08-12] MEDS: PANTOPRAZOLE 40 MG TABLET (FP) PO SCH (10:00)
[2016-08-12] MEDS: LIDOCAINE 5% TOPICAL PATCH TP SCH (10:01)
[2016-08-12] MEDS: POTASSIUM CHLORIDE TABS 20 MEQ TABLET.ER (FP) PO SCH (10:01)
[2016-08-12] MEDS: SULFAMETHOXAZOLE/TRIMETHOPRIM 800MG/160MG D.S. TABLET PO SCH (10:02)
--- NOTE | 2016-08-12 11:52 | PN ---
Progress Note, Physician Chief Complaint: back pain History of Present Illness: Patient had thoracic facet blocks a few days ago without much relief. she continues to have mid back pain. Pain score 9/10 without medications - Current Medication List Current Medications: Active Medications Acetaminophen (Tylenol -) 650 mg PO Q6H PRN PRN Reason: FEVER OR PAIN Last Admin: 08/09/16 21:39 Dose: 650 mg Docusate Sodium (Colace -) 200 mg PO DAILY [facility] Last Admin: 08/12/16 10:00 Dose: 200 mg Guaifenesin (Robitussin Dm -) 10 ml PO Q4H PRN PRN Reason: COUGH Last Admin: 08/10/16 09:50 Dose: 10 ml Levothyroxine Sodium (Synthroid -) 88 mcg PO [id number] [facility] Last Admin: 08/11/16 06:25 Dose: 88 mcg Lidocaine (Lidoderm Patch -) 1 patch TP DAILY [facility] Last Admin: 08/12/16 10:01 Dose: 1 patch Magnesium Oxide (Mag-Ox -) 400 mg PO BID [facility] Last Admin: 08/12/16 10:00 Dose: 400 mg Morphine Sulfate (Morphine Injection -) 2 mg IVPUSH Q3H PRN PRN Reason: PAIN Last Admin: 08/12/16 09:59 Dose: 2 mg Ondansetron HCl (Zofran Injection) 4 mg IVPB Q6H PRN PRN Reason: NAUSEA Last Admin: 08/06/16 10:28 Dose: 4 mg Pantoprazole Sodium (Protonix -) 40 mg PO DAILY [facility] Last Admin: 08/12/16 10:00 Dose: 40 mg Potassium Chloride (K-Dur -) 20 meq PO DAILY [facility] Last Admin: 08/12/16 10:01 Dose: 20 meq Prednisone (Deltasone -) 10 mg PO DAILY [facility] Last Admin: 08/12/16 10:00 Dose: 10 mg Trimethoprim/Sulfamethoxazole (Bactrim Ds -) 1 each PO DAILY [facility] Last Admin: 08/12/16 10:02 Dose: 1 each - Objective Vital Signs: Vital Signs Temperature 98.2 F 08/12/16 10:00 Pulse Rate 88 08/12/16 10:00 Respiratory Rate 18 08/12/16 10:00 Blood Pressure 122/64 08/12/16 10:00 O2 Sat by Pulse Oximetry (%) 96 08/11/16 21:00 Labs: CBC, BMP 08/12/16 06:15 08/12/16 06:15 Assessment/Plan Mid back pain secondary to arthritis 1. No further interventional modalities suggested 2. Consider switch to percocet 7.5/325 1 tab PO Q4h prn pain and stop IV morphine when ready for discharge 3. Rehab eval 4. Consider anxiolytics
--- NOTE | 2016-08-12 13:34 | PN ---
Progress Note (short form) - Note Progress Note: Patient seen and examined. Reports same severity of pain after increasing morphine to q3 prn. Seen by pain management. No further intervention On liquid diet and tolerating well. No nausea, vomiting, abdominal pain. Had day bedore yesterday. None since morning. Flatus + Afebrile Denies chest pain, shortness of breath, palpitation or dizziness. denies headache or blurring of vision. O/E: Not in acute distress Vital Signs Period Temp Pulse Resp BP Sys/Ramirez Pulse Ox Last 24 Hr 98 F-98.2 F 76-90 18-20 116-132/56-64 96 RS: Air entry decreased B/L lung base CVS: s1s2 normal Abdomen: Soft, non tender, BS present. No G/R Microbiology 08/06/16 16:30 Rectal Swab VRE Culture - Final Vanco Resistant Enterococcus 08/06/16 14:00 Nasopharyngeal Swab Respiratory Virus Panel - Preliminary 08/06/16 14:00 Nasopharyngeal Swab Influenza Types A,B Antigen (HARRISON) - Final 08/06/16 14:00 Nasopharyngeal Swab - Final CBC, BMP 08/12/16 06:15 08/12/16 06:15 Current Medications Acetaminophen (Tylenol -) 650 mg PO Q6H PRN PRN Reason: FEVER OR PAIN Last Admin: 08/09/16 21:39 Dose: 650 mg Alprazolam (Xanax -) 0.25 mg PO BID ON LICENSE OF [facility] Docusate Sodium (Colace -) 200 mg PO DAILY ON LICENSE OF [facility] Last Admin: 08/12/16 10:00 Dose: 200 mg Guaifenesin (Robitussin Dm -) 10 ml PO Q4H PRN PRN Reason: COUGH Last Admin: 08/10/16 09:50 Dose: 10 ml Levothyroxine Sodium (Synthroid -) 88 mcg PO [id number]@0700 ON LICENSE OF [facility] Last Admin: 08/11/16 06:25 Dose: 88 mcg Lidocaine (Lidoderm Patch -) 1 patch TP DAILY [facility] Last Admin: 08/12/16 10:01 Dose: 1 patch Magnesium Oxide (Mag-Ox -) 400 mg PO BID ON LICENSE OF [facility] Last Admin: 08/12/16 10:00 Dose: 400 mg Morphine Sulfate (Morphine Injection -) 2 mg IVPUSH Q3H PRN PRN Reason: PAIN Last Admin: 08/12/16 13:19 Dose: 2 mg Ondansetron HCl (Zofran Injection) 4 mg IVPB Q6H PRN PRN Reason: NAUSEA Last Admin: 08/06/16 10:28 Dose: 4 mg Pantoprazole Sodium (Protonix -) 40 mg PO DAILY ON [facility] Last Admin: 08/12/16 10:00 Dose: 40 mg Potassium Chloride (K-Dur -) 20 meq PO DAILY ON LICENSE OF [facility] Last Admin: 08/12/16 10:01 Dose: 20 meq Prednisone (Deltasone -) 10 mg PO DAILY ON LICENSE OF [facility] Last Admin: 08/12/16 10:00 Dose: 10 mg Trimethoprim/Sulfamethoxazole (Bactrim Ds -) 1 each PO DAILY ON [facility] Last Admin: 08/12/16 10:02 Dose: 1 each A/P: - SBO: Tolerating liquid diet. Advance diet as tolerated. Surgery/GI following the case. - THoracic spondylosis/degenerative disc disease/No acute fractures Still c/o severe pain on morphine 2 mg iV Q3 prn and lidocaine patch. Per pain management - no further intervention. - Anxiety: trial of alprazolam 0.25 mg BID - Renal Insufficiency: In the setting of inadequate PO fluid intake. Encourage PO fluid intake. - Hypocalcemia: Corrected calcium 8.8 - Osteoporosis with multiple spinal compression fractures of the thoracic and lumbar spine post kyphoplasties Has new back pain Dr Baxter's input appreciated. 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 - Inflammatory arthritis Possible RA and Sjogren's syndrome Chronic hypergammaglobulinemia. - Hypothyroid: Continue levothyroxine. - Cholelithiasis Noted on Ultrasound ordered by Dr Pierce 03/2016 - AAA 3.4 cm with bilateral iliac artery aneurysms - 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 on daily antibiotic suppression post drainage of right thigh mass Renew daily oral antibiotic. - H/O acid peptic disease/duodenal ulcer Continue PPI as needed - Cough/congestion Cough is making her back pain worse. Continue albuterol nebulizer and corticosteroids. - Hypoalbuminemia Effects of chronic disease as well as nutritional factors - Hypokalemia: Repleted.
[2016-08-12] MEDS: ALPRAZolam 0.25 MG TABLET PO SCH ×2 (15:25→21:44)
--- NOTE | 2016-08-12 15:38 | PN ---
GI Progress Note Subjective: GI NOte: Informed that Joanna would like to try solids. She denies nausea, vomiting or abdominal pain today. - Objective Vital Signs: Vital Signs Temperature 98.1 F 08/12/16 14:47 Pulse Rate 64 08/12/16 14:47 Respiratory Rate 18 08/12/16 14:47 Blood Pressure 122/55 08/12/16 14:47 O2 Sat by Pulse Oximetry (%) 96 08/12/16 09:00 CBC,CMP WBC 9.5 K/mm3 (4.0-10.0) 08/12/16 06:15 RBC 5.56 M/mm3 (3.60-5.2) H 08/12/16 06:15 Hgb 9.8 GM/dL (10.7-15.3) L 08/12/16 06:15 Hct 32.0 % (32.4-45.2) L 08/12/16 06:15 MCV 57.5 fl (80-96) L 08/12/16 06:15 MCHC 30.5 g/dl (32.0-36.0) L 08/12/16 06:15 RDW 19.8 % (11.6-15.6) H 08/12/16 06:15 Plt Count 76 K/MM3 (134-434) L 08/12/16 06:15 MPV 8.4 fl (7.5-11.1) 08/12/16 06:15 Neutrophils % 46.0 % (42.8-82.8) 08/12/16 06:15 Lymphocytes % 8.0 % (8-40) D 08/12/16 06:15 Monocytes % 45.0 % (3.8-10.2) H 08/12/16 06:15 Eosinophils % 1.0 % (0-4.5) 08/12/16 06:15 Basophils % 1.0 % (0-2.0) 08/11/16 06:15 Band Neutrophils 3.0 % (0-10) D 08/11/16 06:15 Metamyelocytes 2 % (0-2) D 08/10/16 06:15 Myelocytes 2 % (0-2) D 08/06/16 07:00 Promyelocytes 1 (0-1) 08/06/16 07:00 Differential Comment Manual diff done 08/12/16 06:15 Smudge Cells Few 08/04/16 06:15 Platelet Estimate Decreased (NORMAL) 08/11/16 06:15 Platelet Comment No clumping noted 08/11/16 06:15 Platelet Comment No clotting detected 08/11/16 06:15 RBC Morphology 08/09/16 06:20 Polychromasia 2+ 08/11/16 06:15 Hypochromic-Microcytic 1+ 08/11/16 06:15 Poikilocytosis 2+ 08/11/16 06:15 Anisocytosis 2+ 08/11/16 06:15 Microcytosis 2+ 08/11/16 06:15 Macrocytosis 1+ 08/10/16 06:15 Spherocytes 1+ 08/04/16 06:15 Tear Drop Cells 1+ 08/10/16 06:15 Ovalocytes 1+ 08/10/16 06:15 Fragmented RBCs 1+ 08/11/16 06:15 Morphology Comment Slide scanned 08/10/16 06:15 Sodium 138 mmol/L (136-145) 08/12/16 06:15 Potassium 4.6 mmol/L (3.5-5.1) 08/12/16 06:15 Chloride 102 mmol/L (98-107) 08/12/16 06:15 Carbon Dioxide 28 mmol/L (21-32) 08/12/16 06:15 Anion Gap 8 (8-16) 08/12/16 06:15 BUN 21 mg/dL (7-18) H D 08/12/16 06:15 Creatinine 0.6 mg/dL (0.55-1.02) 08/12/16 06:15 Creat Clearance w eGFR > 60 (>60) 08/12/16 06:15 Random Glucose 95 mg/dL (74-106) 08/12/16 06:15 Calcium 7.8 mg/dL (8.5-10.1) L 08/12/16 06:15 Ionized Calcium 4.9 mg/dL (4.5-5.6) 08/09/16 06:20 Phosphorus 3.7 mg/dL (2.5-4.9) D 08/11/16 06:15 Magnesium 1.9 mg/dL (1.8-2.4) D 08/09/16 06:20 Total Bilirubin 0.3 mg/dL (0.2-1.0) D 08/12/16 06:15 AST 11 U/L (15-37) L 08/12/16 06:15 ALT 9 U/L (12-78) L 08/12/16 06:15 Alkaline Phosphatase 47 U/L (45-117) 08/12/16 06:15 Creatine Kinase 24 IU/L (26-192) L 08/03/16 09:40 Troponin I < 0.02 ng/ml (0.00-0.05) 08/03/16 09:40 Total Protein 6.3 g/dl (6.4-8.2) L 08/12/16 06:15 Albumin 2.8 g/dl (3.4-5.0) L 08/12/16 06:15 Lipase 87 U/L (73-393) 08/03/16 09:40 TSH 1.95 uIU/ml (0.358-3.74) D 08/05/16 07:15 PTH Intact 55 pg/mL (15-65) 08/09/16 06:20 PTH Intact Intraop 0 m (.) 08/09/16 06:20 Constitutional: Calm ...Auscultate: Yes: Hypoactive Bowel Sounds ...Palpate: Yes: Soft, Other (nontender) Labs: CBC, BMP 08/12/16 06:15 08/12/16 06:15 Assessment/Plan Resolving SBO vs narcotic ileus. Will try soft diet. May consider Movantik as outpatient given chronic narcotic dependency.
[2016-08-12] MEDS ORDERED: ALPRAZolam 0.25 MG TABLET PO SCH (22:00)
[2016-08-13] MEDS: morphine CARPU-JECT 2 MG/1 ML DISP.SYRIN IVPUSH PRN ×2 (00:56→05:43)
[2016-08-13] MEDS: LEVOTHYROXINE NA 88 MCG TABLET (FP) PO SCH (06:20)
--- NOTE | 2016-08-13 09:09 | PN ---
[id number] old with complicated PMHx, presented with abdominal pain and CT findings c/w distal SBO. Currently remains lying supine in bed, awake alert and responsive and complaining of ongoing severe mid back pain c/w h/o multiple compression fractures, despite undergoing bilateral spinal epidural injections last week with Dr Baxter. Bone scan did not reveal findings of an acute fracture but was more c/w severe osteoarthritis. No improvement with Lidoderm patch. Tolerating full liquid diet. Having BMs regularly. Denies new chest discomfort palpitations SANTOS or angina. Cough improved. Labs and radiologic studies reviewed. Surgical, GI and pain management notes appreciated. Labs reviewed Patients sister Saturday at [facility] Selected Entries 08/12/16 08/13/16 21:00 04:47 Temperature 97.6 F Pulse Rate 76 Respiratory 20 Rate Blood Pressure 130/62 O2 Sat by Pulse 96 Oximetry (%) Oxygen Delivery Room Air Method Laboratory Tests 08/12/16 08/12/16 06:15 06:15 WBC 9.5 Hgb 9.8 L Hct 32.0 L Plt Count 76 L Sodium 138 Potassium 4.6 Chloride 102 Carbon Dioxide 28 BUN 21 H D Creatinine 0.6 Random Glucose 95 Calcium 7.8 L Total Bilirubin 0.3 D AST 11 L ALT 9 L Alkaline Phosphatase 47 Total Protein 6.3 L Albumin 2.8 L Chest Lungs clear No wheeze Less upper airway congestion Cor RRR 2/6 systolic murmur Abdomen Soft non-tender Mild distention. Bowel sounds audible this AM Spleen palpable LUQ Ext No new edema Neuro No new focal deficit Assessment and Plan SBO Surgical and GI opinion noted Bowel sounds audible again this AM. 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 Today's CBC noted with declining platelets Inflammatory arthritis Possible RA and Sjogren's syndrome Chronic hypergammaglobulinemia Hypothyroid Follow closely TSH noted Restarted outpatient levothyroxine dose Cholelithiasis Noted on Ultrasound ordered by Dr Pierce 03/2016 AAA 3.4 cm with bilateral iliac artery aneurysms Osteoporosis with multiple spinal compression fractures of the thoracic and lumbar spine post kyphoplasties Has new back pain Dr Baxter's input appreciated. Dr Moscoso's note and input appreciated Receives Prolia twice yearly Further labs pending 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 on daily antibiotic suppression post drainage of right thigh mass Renew daily oral antibiotic On chronic steroids Replace low dose steroids Observe for signs/symptoms of Addisonian crisis Will taper quickly H/O acid peptic disease/duodenal ulcer Continue PPI as needed Cough/congestion Cough is making her back pain worse Hypoalbuminemia Effects of chronic disease as well as nutritional factors Hypokalemia 3.4>>4.1>>4.4>>4.6 Replete Mg 1.9 Hypocalcemia Recheck Ionized calcium level pending Phosphorus level low Today's Ca++ level 7.8 with albumin of 2.8 corrected to 8.76 Full extensive Problem List as per office notes and old charts
[2016-08-13] MEDS: oxyCODONE HCL 5 MG TABLET PO PRN ×3 (10:23→22:17)
[2016-08-13] MEDS: LIDOCAINE 5% TOPICAL PATCH TP SCH (10:25)
[2016-08-13] MEDS: DOCUSATE SODIUM 100 MG CAPSULE (FP) PO SCH (10:26)
[2016-08-13] MEDS: ALPRAZolam 0.25 MG TABLET PO SCH ×2 (10:26→22:10)
[2016-08-13] MEDS: PANTOPRAZOLE 40 MG TABLET (FP) PO SCH (10:26)
[2016-08-13] MEDS: predniSONE 10 MG TABLET (UD) PO SCH (10:27)
[2016-08-13] MEDS: POTASSIUM CHLORIDE TABS 20 MEQ TABLET.ER (FP) PO SCH (10:27)
[2016-08-13] MEDS: MAGNESIUM OXIDE 400 MG TABLET (FP) PO SCH ×2 (10:27→22:09)
[2016-08-13] MEDS: SULFAMETHOXAZOLE/TRIMETHOPRIM 800MG/160MG D.S. TABLET PO SCH (10:27)
[2016-08-14] MEDS: oxyCODONE HCL 5 MG TABLET PO PRN ×5 (02:49→22:26)
[2016-08-14] MEDS: LEVOTHYROXINE NA 88 MCG TABLET (FP) PO SCH (06:13)
[2016-08-14 08:02] LABS: MCHC 30.2 g/dl (32.0-36.0); MEAN CELL VOLUME 58.2 fl (80-96); MEAN PLT VOLUME 8.7 fl (7.5-11.1); PLATELET COUNT 93 K/MM3 (134-434); WHITE BLOOD COUNT 10.6 K/mm3 (4.0-10.0)
[2016-08-14 08:10] LABS: MCH 17.6 pg (25.7-33.7)
[2016-08-14 08:34] LABS: ALBUMIN 2.8 g/dl (3.4-5.0); ALK PHOS 67 U/L (45-117); ANION GAP 7 (8-16); BILIRUBIN,TOTAL 0.3 mg/dL (0.2-1.0); CALCIUM 7.8 mg/dL (8.5-10.1); CO2 27 mmol/L (21-32); CREATININE 0.5 mg/dL (0.55-1.02); GLUCOSE,RANDOM 94 mg/dL (74-106); SGOT/AST 23 U/L (15-37); SGPT/ALT 19 U/L (12-78); TOT PROT 6.3 g/dl (6.4-8.2)
[2016-08-14] MEDS: ACETAMINOPHEN 325 MG TABLET (FP) PO PRN ×4 (08:53→22:23)
--- NOTE | 2016-08-14 09:13 | PN ---
Progress Note (short form) - Note Progress Note: Patient seen and examined Chart reviewed. 85 year old with complicated PMHx, presented with abdominal pain and CT findings c/w distal SBO. Currently remains lying supine in bed, awake alert and responsive and complaining of ongoing mid back pain c/w h/o multiple compression fractures, despite undergoing bilateral spinal epidural injections last week with Dr Baxter. Careful positioning in bed, aided by maneuvering the hospital bed with gel mattress overlay, provides added relief. Bone scan did not reveal findings of an acute fracture but was more c/w severe osteoarthritis. No improvement with Lidoderm patch. Was able to ambulate 60 feet with PT yesterday. Tolerating full liquid diet. Having BMs regularly. Denies new chest discomfort palpitations SANTOS or angina. Cough improved. Labs reviewed. Will make plans for possible discharge home with VNS, Home PT and ENTRY WRITER supplemented by private hire for help with ADLs Selected Entries 08/13/16 08/14/16 21:00 06:00 Temperature 97.6 F Pulse Rate 72 Respiratory 18 Rate Blood Pressure 130/68 O2 Sat by Pulse 96 Oximetry (%) Oxygen Delivery Room Air Method Laboratory Tests 08/14/16 08/14/16 06:45 06:45 WBC 10.6 H Hgb 9.4 L Hct 31.3 L Plt Count 93 L D Sodium 139 Potassium 4.3 Chloride 105 Carbon Dioxide 27 BUN 20 H Creatinine 0.5 L Random Glucose 94 Calcium 7.8 L Total Bilirubin 0.3 AST 23 D ALT 19 D Alkaline Phosphatase 67 D Total Protein 6.3 L Albumin 2.8 L Chest Lungs clear No wheeze Less upper airway congestion Cor RRR 2/6 systolic murmur Abdomen Soft non-tender Mild distention. Bowel sounds audible this AM Spleen palpable LUQ Ext No new edema Neuro No new focal deficit Assessment and Plan SBO Remains stable Bowel sounds normal this AM. 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 Today's CBC noted Platelets improved to 93K Inflammatory arthritis Possible RA and Sjogren's syndrome Chronic hypergammaglobulinemia Hypothyroid Follow closely TSH noted Restarted outpatient levothyroxine dose Cholelithiasis Noted on Ultrasound ordered by Dr Pierce 03/2016 AAA 3.4 cm with bilateral iliac artery aneurysms Osteoporosis with multiple spinal compression fractures of the thoracic and lumbar spine post kyphoplasties Has new back pain Dr Baxter's input appreciated. Dr Moscoso's note and input appreciated Receives Prolia twice yearly. Capability of positioning with the Hospital bed with gel mattress overlay aids in her pain relief and prevents pressure ulcers. 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 on daily antibiotic suppression post drainage of right thigh mass Renew daily oral antibiotic On chronic steroids Replace low dose steroids Observe for signs/symptoms of Addisonian crisis Will taper quickly H/O acid peptic disease/duodenal ulcer Continue PPI as needed Cough/congestion Cough is making her back pain worse Improved overall Hypoalbuminemia Effects of chronic disease as well as nutritional factors Hypokalemia 3.4>>4.1>>4.4>>4.6 Replete Mg 1.9 Hypocalcemia Recheck Ionized calcium level pending Phosphorus level low Today's Ca++ level 7.8 with albumin of 2.8, again, corrected to 8.76 Full extensive Problem List as per office notes and old charts
[2016-08-14 09:40] LABS: ANISOCYTOSIS 2+; MICROCYTOSIS 2+
[2016-08-14 09:42] LABS: HYPOCHROMIA 3+
[2016-08-14] MEDS: LIDOCAINE 5% TOPICAL PATCH TP SCH (10:53)
[2016-08-14] MEDS: ALPRAZolam 0.25 MG TABLET PO SCH ×2 (10:53→22:25)
[2016-08-14] MEDS: predniSONE 10 MG TABLET (UD) PO SCH (10:53)
[2016-08-14] MEDS: SULFAMETHOXAZOLE/TRIMETHOPRIM 800MG/160MG D.S. TABLET PO SCH (10:53)
[2016-08-14] MEDS: DOCUSATE SODIUM 100 MG CAPSULE (FP) PO SCH (10:53)
[2016-08-14] MEDS: POTASSIUM CHLORIDE TABS 20 MEQ TABLET.ER (FP) PO SCH (10:53)
[2016-08-14] MEDS: PANTOPRAZOLE 40 MG TABLET (FP) PO SCH (10:54)
[2016-08-14] MEDS: MAGNESIUM OXIDE 400 MG TABLET (FP) PO SCH ×2 (10:54→22:25)
[2016-08-15] MEDS: ACETAMINOPHEN 325 MG TABLET (FP) PO PRN ×5 (02:30→22:48)
[2016-08-15] MEDS: oxyCODONE HCL 5 MG TABLET PO PRN ×5 (02:30→22:47)
[2016-08-15] MEDS: LEVOTHYROXINE NA 88 MCG TABLET (FP) PO SCH (06:45)
--- NOTE | 2016-08-15 08:50 | PN ---
Progress Note (short form) - Note Progress Note: Patient seen and examined Chart reviewed. 85 year old with complicated PMHx, presented with abdominal pain and CT findings c/w distal SBO. Currently remains sitting up in bed, awake alert and responsive but complaining less of ongoing mid back pain c/w h/o multiple compression fractures, despite undergoing bilateral spinal epidural injections last week with Dr Baxter. Careful positioning in bed, aided by maneuvering the hospital bed provides added relief. Gel mattress overlay adds further relief and decreases risk of potential pressure ulcers, which is a realistic risk in this clinical setting. Bone scan did not reveal findings of an acute fracture but was more c/w severe osteoarthritis. No improvement with Lidoderm patch. Was able to ambulate 70 feet with PT. Tolerating diet. Having BMs regularly. Denies new chest discomfort palpitations SANTOS or angina. Cough improved. Labs reviewed. Will make plans for possible discharge home with VNS, Home PT and CASE BRIEFER supplemented by private hire for help with ADLs Selected Entries 08/14/16 08/15/16 21:00 06:00 Temperature 97.4 F L Pulse Rate 67 Respiratory 18 Rate Blood Pressure 120/63 O2 Sat by Pulse 96 Oximetry (%) Oxygen Delivery Room Air Method Chest Lungs clear No wheeze Less upper airway congestion Cor RRR 2/6 systolic murmur Abdomen Soft non-tender Mild distention. Bowel sounds audible this AM Spleen palpable LUQ Ext No new edema Neuro No new focal deficit Assessment and Plan SBO Remains stable Bowel sounds normal this AM. 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 Dr Moscoso's note and input appreciated Receives Prolia twice yearly. Capability of positioning with the Hospital bed with gel mattress overlay aids in her pain relief and prevents pressure ulcers. 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 on daily antibiotic suppression post drainage of right thigh mass Renew daily oral antibiotic On chronic steroids Replace low dose steroids Observe for signs/symptoms of Addisonian crisis Will taper quickly H/O acid peptic disease/duodenal ulcer Continue PPI as needed Cough/congestion Cough is making her back pain worse Improved overall Hypoalbuminemia Effects of chronic disease as well as nutritional factors Hypokalemia 3.4>>4.1>>4.4>>4.6 Replete Mg 1.9 Hypocalcemia Recheck Ionized calcium level pending Phosphorus level low Today's Ca++ level 7.8 with albumin of 2.8, again, corrected to 8.76 Full extensive Problem List as per office notes and old charts Possible discharge in AM 08/16/16 with current medical regimen, VNS with Home PT and CASE BRIEFER as well as some private hire help.. Hospital bed ordered to aid in necessary positioning for comfort and pain control with Gel Mattress overlay to aid in pain control and prevent bed sores/pressure ulcers
[2016-08-15] MEDS: DOCUSATE SODIUM 100 MG CAPSULE (FP) PO SCH (10:44)
[2016-08-15] MEDS: ALPRAZolam 0.25 MG TABLET PO SCH ×2 (10:44→22:48)
[2016-08-15] MEDS: SULFAMETHOXAZOLE/TRIMETHOPRIM 800MG/160MG D.S. TABLET PO SCH (10:44)
[2016-08-15] MEDS: MAGNESIUM OXIDE 400 MG TABLET (FP) PO SCH ×2 (10:45→22:48)
[2016-08-15] MEDS: LIDOCAINE 5% TOPICAL PATCH TP SCH (10:45)
[2016-08-15] MEDS: predniSONE 10 MG TABLET (UD) PO SCH (10:46)
[2016-08-15] MEDS: POTASSIUM CHLORIDE TABS 20 MEQ TABLET.ER (FP) PO SCH (10:46)
[2016-08-15] MEDS: PANTOPRAZOLE 40 MG TABLET (FP) PO SCH (10:47)
--- NOTE | 2016-08-15 15:29 | PN ---
Progress Note (short form) - Note Progress Note: Still with Back pain but less on Oxycodone Vital Signs Period Temp Pulse Resp BP Sys/Ramirez Pulse Ox Last 24 Hr 97.4 F-98.4 F 67-91 18-20 112-132/58-80 96 PE: AOx3 Neck: Supple, No JVD HEENT: PERRL EOMI, Yellowish pigmentation/plaques over face mainly around the eyes and left side of face and anterior chest wall Lungs: CTA CVS: S1S2 Abd: Benign EXT: No edema Neuro: No focal deficit CMP Sodium 139 mmol/L (136-145) 08/14/16 06:45 Potassium 4.3 mmol/L (3.5-5.1) 08/14/16 06:45 Chloride 105 mmol/L (98-107) 08/14/16 06:45 Carbon Dioxide 27 mmol/L (21-32) 08/14/16 06:45 Anion Gap 7 (8-16) L 08/14/16 06:45 BUN 20 mg/dL (7-18) H 08/14/16 06:45 Creatinine 0.5 mg/dL (0.55-1.02) L 08/14/16 06:45 Creat Clearance w eGFR > 60 (>60) 08/14/16 06:45 Random Glucose 94 mg/dL (74-106) 08/14/16 06:45 Calcium 7.8 mg/dL (8.5-10.1) L 08/14/16 06:45 Ionized Calcium 4.9 mg/dL (4.5-5.6) 08/09/16 06:20 Phosphorus 3.7 mg/dL (2.5-4.9) D 08/11/16 06:15 Magnesium 1.9 mg/dL (1.8-2.4) D 08/09/16 06:20 Total Bilirubin 0.3 mg/dL (0.2-1.0) 08/14/16 06:45 AST 23 U/L (15-37) D 08/14/16 06:45 ALT 19 U/L (12-78) D 08/14/16 06:45 Alkaline Phosphatase 67 U/L (45-117) D 08/14/16 06:45 Creatine Kinase 24 IU/L (26-192) L 08/03/16 09:40 Troponin I < 0.02 ng/ml (0.00-0.05) 08/03/16 09:40 Total Protein 6.3 g/dl (6.4-8.2) L 08/14/16 06:45 Albumin 2.8 g/dl (3.4-5.0) L 08/14/16 06:45 Lipase 87 U/L (73-393) 08/03/16 09:40 Vit D 1,25-Dihydroxy 79.1 pg/mL (19.9-79.3) 08/09/16 06:20 TSH 1.95 uIU/ml (0.358-3.74) D 08/05/16 07:15 PTH Intact 55 pg/mL (15-65) 08/09/16 06:20 PTH Intact Intraop 0 m (.) 08/09/16 06:20 Current Medications Generic Name Dose Route Start Last Admin Trade Name Freq PRN Reason Stop Dose Admin Acetaminophen 650 mg 08/07/16 08:51 08/14/16 13:42 Tylenol - PO 650 mg Q6H PRN Administration FEVER OR PAIN Acetaminophen 650 mg 08/13/16 09:12 08/15/16 14:45 Tylenol - PO 650 mg Q4H PRN Administration FEVER OR PAIN Alprazolam 0.25 mg 08/12/16 14:00 08/15/16 10:44 Xanax - PO 0.25 mg BID DENISE Administration Docusate Sodium 200 mg 08/05/16 10:00 08/15/16 10:44 Colace - PO 200 mg DAILY DENISE Administration Guaifenesin 10 ml 08/07/16 16:38 08/10/16 09:50 Robitussin Dm - PO 10 ml Q4H PRN Administration COUGH Levothyroxine Sodium 88 mcg 08/08/16 09:45 08/15/16 06:45 Synthroid - PO 88 mcg [id number] DENISE Administration Lidocaine 1 patch 08/09/16 10:00 08/15/16 10:45 Lidoderm Patch - TP 1 patch DAILY DENISE Administration Magnesium Oxide 400 mg 08/08/16 22:00 08/15/16 10:45 Mag-Ox - PO 400 mg BID DENISE Administration Ondansetron HCl 4 mg 08/03/16 15:41 08/06/16 10:28 Zofran Injection IVPB 4 mg Q6H PRN Administration NAUSEA Oxycodone HCl 7.5 mg 08/13/16 09:10 08/15/16 14:45 Roxicodone - PO 7.5 mg Q4H PRN Administration PAIN Pantoprazole Sodium 40 mg 08/07/16 10:00 08/15/16 10:47 Protonix - PO 40 mg DAILY DENISE Administration Potassium Chloride 20 meq 08/05/16 10:00 08/15/16 10:46 K-Dur - PO 20 meq DAILY DENISE Administration Prednisone 10 mg 08/10/16 10:00 08/15/16 10:46 Deltasone - PO 10 mg DAILY DENISE Administration Trimethoprim/Sulfamethoxazole 1 each 08/06/16 10:00 08/15/16 10:44 Bactrim Ds - PO 1 each DAILY DENISE Administration AP: Hypocalcemia: resolving Corrected Ca 8.8, Inoized Calcium normal PTH, 1,25 Vit D Wnl Prolia administered mid June as per pt so unlikely to be the cause of the hypocalcemia Monitor calcium, Will F/U Hypothyroidism: LT4 88mcg 6 days per week. Repeat TFT in 4 to 6 weeks and adjust dose if necessary Osteoporosis: on Prolia twice a week given by her Student Support Services Director Hypophosphatemia resolved Was on Vitamin D 5000 units per day as per pt. Check vit D as outpt and restart as necessary. Yellowish discoloration of skin over face, ant chest wall: Consider Dermatology consult. Problem List - Problems (1) Abdominal pain Code(s): R10.9 - UNSPECIFIED ABDOMINAL PAIN Qualifiers: Abdominal location: epigastric Qualified Code(s): R10.13 - Epigastric pain (2) Intractable low back pain Code(s): M54.5 - LOW BACK PAIN (3) Small bowel obstruction Code(s): K56.69 - OTHER INTESTINAL OBSTRUCTION (4) Hypothyroid Code(s): E03.9 - HYPOTHYROIDISM, UNSPECIFIED (5) Osteoporosis Code(s): M81.0 - AGE-RELATED OSTEOPOROSIS W/O CURRENT PATHOLOGICAL FRACTURE
[2016-08-16] MEDS: oxyCODONE HCL 5 MG TABLET PO PRN ×5 (02:49→21:23)
[2016-08-16] MEDS: ACETAMINOPHEN 325 MG TABLET (FP) PO PRN ×3 (06:49→21:25)
[2016-08-16] MEDS: LEVOTHYROXINE NA 88 MCG TABLET (FP) PO SCH (06:50)
--- NOTE | 2016-08-16 08:36 | PN ---
Progress Note (short form) - Note Progress Note: Patient seen and examined Chart reviewed. 85 year old with complicated PMHx, presented with abdominal pain and CT findings c/w distal SBO. Currently remains sitting up in bed, awake alert and responsive but complaining less of ongoing mid back pain c/w h/o multiple compression fractures, despite undergoing bilateral spinal epidural injections last week with Dr Baxter. Careful positioning in bed, aided by maneuvering the hospital bed provides added relief. Gel mattress overlay adds further relief and decreases risk of potential pressure ulcers, which is a realistic risk in this clinical setting. Bone scan did not reveal findings of an acute fracture but was more c/w severe osteoarthritis. No improvement with Lidoderm patch. Was able to ambulate 70 feet with PT. Tolerating diet. Having BMs regularly. Denies new chest discomfort palpitations SANTOS or angina. Cough improved. Labs reviewed. Will make plans for possible discharge home with VNS, Home PT and [facility] supplemented by private hire for help with ADLs Selected Entries 08/15/16 08/16/16 21:00 06:00 Temperature 98.6 F Pulse Rate 73 Respiratory 20 Rate Blood Pressure 129/65 O2 Sat by Pulse 97 Oximetry (%) Oxygen Delivery Room Air Method Chest Lungs clear No wheeze Less upper airway congestion Cor RRR 2/6 systolic murmur Abdomen Soft non-tender Mild distention. Bowel sounds audible this AM Spleen palpable LUQ Ext No new edema Neuro No new focal deficit Assessment and Plan SBO Remains stable Bowel sounds normal this AM. 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 Dr Moscoso's note and input appreciated Receives Prolia twice yearly. Capability of positioning with the Hospital bed with gel mattress overlay aids in her pain relief and prevents pressure ulcers. 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 on daily antibiotic suppression post drainage of right thigh mass Renew daily oral antibiotic On chronic steroids Replace low dose steroids Observe for signs/symptoms of Addisonian crisis Will taper quickly H/O acid peptic disease/duodenal ulcer Continue PPI as needed Cough/congestion Cough is making her back pain worse Improved overall Hypoalbuminemia Effects of chronic disease as well as nutritional factors Hypokalemia 3.4>>4.1>>4.4>>4.6 Replete Mg 1.9 Hypocalcemia Recheck Ionized calcium level pending Phosphorus level low Today's Ca++ level 7.8 with albumin of 2.8, again, corrected to 8.76 Full extensive Problem List as per office notes and old charts Possible discharge in AM 08/17/16, due to weather issues, with current medical regimen, VNS with Home PT and [facility] as well as some private hire help.. Hospital bed ordered to aid in necessary positioning for comfort and pain control with Gel Mattress overlay to aid in pain control and prevent bed sores/pressure ulcers
[2016-08-16] MEDS: DOCUSATE SODIUM 100 MG CAPSULE (FP) PO SCH (11:08)
[2016-08-16] MEDS: predniSONE 10 MG TABLET (UD) PO SCH (11:08)
[2016-08-16] MEDS: SULFAMETHOXAZOLE/TRIMETHOPRIM 800MG/160MG D.S. TABLET PO SCH (11:08)
[2016-08-16] MEDS: PANTOPRAZOLE 40 MG TABLET (FP) PO SCH (11:08)
[2016-08-16] MEDS: MAGNESIUM OXIDE 400 MG TABLET (FP) PO SCH ×2 (11:08→21:22)
[2016-08-16] MEDS: LIDOCAINE 5% TOPICAL PATCH TP SCH (11:09)
[2016-08-16] MEDS: POTASSIUM CHLORIDE TABS 20 MEQ TABLET.ER (FP) PO SCH (11:09)
[2016-08-16] MEDS: ALPRAZolam 0.25 MG TABLET PO SCH ×2 (11:09→21:22)
[2016-08-17] MEDS: ACETAMINOPHEN 325 MG TABLET (FP) PO PRN ×3 (02:33→12:17)
[2016-08-17] MEDS: oxyCODONE HCL 5 MG TABLET PO PRN ×3 (02:33→12:18)
[2016-08-17] MEDS: LEVOTHYROXINE NA 88 MCG TABLET (FP) PO SCH (06:21)
[2016-08-17 07:22] VITALS: BP 107/52; PULSE 69; TEMP 98.1
--- NOTE | 2016-08-17 08:45 | DS ---
Physical Examination Vital Signs: Vital Signs Temperature 98.1 F 08/17/16 06:00 Pulse Rate 69 08/17/16 06:00 Respiratory Rate 20 08/17/16 06:00 Blood Pressure 107/52 08/17/16 06:00 O2 Sat by Pulse Oximetry (%) 95 08/16/16 21:00 Constitutional: Yes: Mild Distress Cardiovascular: Yes: Regular Rate and Rhythm Respiratory: Yes: CTA Bilaterally Gastrointestinal: Yes: Normal Bowel Sounds, Soft Edema: No Neurological: Yes: Alert, Oriented Labs: CBC, BMP 08/14/16 06:45 08/14/16 06:45 Discharge Summary Reason For Visit: ABD PAIN,SBO Current Active Problems Full Problem List (Chronic) Hypothyroid (Chronic) Inflammatory arthritis (Chronic) Intractable low back pain (Chronic) Microcytic anemia (Chronic) Myelodysplastic disease (Chronic) Osteoporosis (Chronic) Systolic murmur (Chronic) Hospital Course: Please refer to daily notes Admitted initially with SBO, treated conservatively with gradual return of function. Main issue was recurrence and persistence of mid back pain c/s h/o multiple spinal compression fractures and kyphoplasties. Bone scan finding more c/w severe osteoarathritis and no evidence of new fracture. Bilateral epidural injections by Dr Baxter did not lead to adequate relief. Patient requested discharge home with VNS and private pay help Condition: Fair - Instructions Diet, Activity, Other Instructions: Diet and activity as tolerated VNS referral close follow-up Disposition: HOME - Home Medications Comprehensive Discharge Medication List: Ambulatory Orders Aspirin [Aspirin EC] 81 mg PO DAILY 03/30/15 Calcium Carb/Magnesium Ox,Carb [Gio-Mag Tablet Chewable] 1 tab PO DAILY Cholecalciferol (Vitamin D3) [Vitamin D3 -] 5,000 unit PO DAILY 03/30/15 Furosemide [Lasix -] 20 mg PO PRN PRN 03/30/15 Potassium Chloride [Klor-Con 10] 10 meq PO DAILY 03/30/15 Sulfamethoxazole/Trimethoprim [Bactrim DS -] 1 each PO DAILY tablet 04/02/15 Pantoprazole Sodium [Protonix] 40 mg PO DAILY 05/03/15 Levothyroxine [Synthroid -] 88 mcg PO DAILY@0700 11/20/15 Morphine *Sr* [Ms Contin -] 5 mg PO Q8H 08/03/16 Acetaminophen [Tylenol .Regular Strength -] 650 mg PO Q6H PRN #0 tablet Levothyroxine [Synthroid -] 88 mcg PO [id number] tablet 08/17/16 Oxycodone HCl [Roxicodone -] 7.5 mg PO Q4H PRN #120 tablet MDD 6 08/17/16 Pantoprazole Sodium [Protonix -] 40 mg PO DAILY tablet.ec 08/17/16 Prednisone [Deltasone -] 10 mg PO DAILY tablet 08/17/16 Sulfamethoxazole/Trimethoprim [Bactrim DS -] 1 each PO DAILY tablet 08/17/16
[2016-08-17] MEDS: SULFAMETHOXAZOLE/TRIMETHOPRIM 800MG/160MG D.S. TABLET PO SCH (11:09)
[2016-08-17] MEDS: predniSONE 10 MG TABLET (UD) PO SCH (11:09)
[2016-08-17] MEDS: DOCUSATE SODIUM 100 MG CAPSULE (FP) PO SCH (11:09)
[2016-08-17] MEDS: MAGNESIUM OXIDE 400 MG TABLET (FP) PO SCH (11:09)
[2016-08-17] MEDS: ALPRAZolam 0.25 MG TABLET PO SCH (11:10)
[2016-08-17] MEDS: POTASSIUM CHLORIDE TABS 20 MEQ TABLET.ER (FP) PO SCH (11:10)
[2016-08-17] MEDS: PANTOPRAZOLE 40 MG TABLET (FP) PO SCH (11:10)
[2016-08-17] MEDS: LIDOCAINE 5% TOPICAL PATCH TP SCH (11:12)
== END 2016-08-17 12:22 | disposition home health service (06) | DRG 389 ==
LOC: JER 08:30 → JERBED 14:09 → J8W 23:15
PROVIDERS: ADMIT Internal Medicine; ATTEND Internal Medicine
PROC: 3E0U33Z Introduction of Anti-inflammatory into Joints, Percutaneous Approach (ICD-10-PCS; 2016-08-09)
PROC: BR1 Imaging, Axial Skeleton, Except Skull and Facial Bones, Fluoroscopy (ICD-10-PCS; 2016-08-09)
PROC: 3E0U3BZ Introduction of Anesthetic Agent into Joints, Percutaneous Approach (ICD-10-PCS; principal; 2016-08-09 18:45)
DX: K56.60 Unspecified intestinal obstruction (principal); C94.6 Myelodysplastic disease, not elsewhere classified; M35.00 Sjogren syndrome, unspecified; M47.9 Spondylosis, unspecified; E03.9 Hypothyroidism, unspecified; Z96.641 Presence of right artificial hip joint; Z87.11 Personal history of peptic ulcer disease; R16.1 Splenomegaly, not elsewhere classified; D89.2 Hypergammaglobulinemia, unspecified; I71.4 Abdominal aortic aneurysm, without rupture; M48.56XD Collapsed vertebra, not elsewhere classified, lumbar region, subsequent encounter for fracture with routine healing; M48.54XD Collapsed vertebra, not elsewhere classified, thoracic region, subsequent encounter for fracture with routine healing; K80.20 Calculus of gallbladder without cholecystitis without obstruction; D50.9 Iron deficiency anemia, unspecified; E87.6 Hypokalemia; E83.51 Hypocalcemia; E88.09 Other disorders of plasma-protein metabolism, not elsewhere classified; M54.5 Low back pain; M51.34 Other intervertebral disc degeneration, thoracic region; D69.6 Thrombocytopenia, unspecified
CPT/HCPCS: 36415; 71010-TC; 72070-TC; 72100-TC; 74000-TC; 74020-TC; 74177-TC; 76000-TC; 78306-TC; 80053; 81003; 82272; 82310; 82330; 82550; 82652; 83690; 83735; 83970; 84100; 84443; 84484; 85025; 87081; 87254; 87804; 93005; 93010; 94640; 97116-GP; 97161-GP; 99285-25; A9503; J1644